=== PATIENT | female | born 1945 | race Caucasian/White ===

== ENCOUNTER 2020-05-02 11:09 | Outpatient (REF) | payer MEDICARE, SELFPAY ==
--- NOTE | ~2020-05-02 | MM_ITS ---
EXAMINATION: MM SCREENING DIGITAL BREAST TOMOSYNTHESIS, BILATERAL CLINICAL INFORMATION: Screening. Asymptomatic. Family history breast cancer in sisters, one diagnosed at age 40. The lifetime risk of breast cancer based on the Tyrer-Cuzick Model is 7%. COMPARISON: Mammography: 04/27/2019, 04/24/2018, 04/20/2017 TECHNIQUE: Digital breast tomosynthesis is performed in both the craniocaudal and mediolateral oblique views along with computer-aided detection (CAD). Synthesized 2D images are generated from the tomosynthesis. FINDINGS: There are scattered areas of fibroglandular density (ACR BI-RADS breast composition Category b). There are no significant masses, abnormal calcifications, or other abnormalities. There is small stable nodule retroareolar right breast. Parenchymal pattern is similar to prior studies. No developing density. No significant changes. MM/MM tomosynthesis screening BI IMPRESSION: No significant changes from prior studies. ASSESSMENT: BI-RADS 2: Benign RECOMMENDATION: Routine annual mammography screening. This patient's information was entered into a reminder system with a target due date for their next mammogram.
== END 2020-05-02 11:10 | disposition home or self-care (01) ==
LOC: HO.MAMMO 11:09
PROVIDERS: PCP Internal Medicine; Visit Provider Obstetrics & Gynecology
DX: Z12.31 Encounter for screening mammogram for malignant neoplasm of breast (principal)
CPT/HCPCS: 77063; 77067

== ENCOUNTER 2020-08-21 06:59 | Outpatient (REF) | payer MEDICARE, SELFPAY ==
[2020-08-21 08:19] LABS: MANUAL DIFF FLAG NO
[2020-08-21 08:29] LABS: Basophils Percent Auto 0.6 % (0-2); Eosinophils Absolute Auto 0.3 X10*3/uL (0.0-0.4); Eosinophils Percent Auto 4.5 % (0-4); Hemoglobin 13.9 g/dl (12.0-16.0); Imm Gran Abs Auto 0.01 X10*3/uL (0.00-0.03); Imm Gran Pct Auto 0.1 % (0.0-0.4); Lymphocytes Percent Auto 42.2 % (20-40); Mean Corpuscular HGB Conc 32.3 g/dl (31.0-35.0); Mean Corpuscular Hemoglobin 29.8 pg (27.0-33.0); Mean Corpuscular Volume 92.3 fL (80-98); Mean Platelet Volume 9.3 fL (9.4-12.3); Monocytes Absolute Auto 0.5 X10*3/uL (0.1-1.2); Monocytes Percent Auto 7.4 % (2-11); Neutrophils Absolute Auto 3.2 X10*3/uL (2.0-8.3); Neutrophils Percent Auto 45.2 % (45-73); Platelet Count 259 X10*3/uL (160-400); Red Blood Count 4.66 X10*6/uL (4.20-5.50); Red Cell Distribution Width 13.4 % (11.0-16.0); White Blood Count 7.2 X10*3/uL (4.8-10.8)
[2020-08-21 08:32] LABS: Glucose Urine UA NEG (NEG); Leukocyte Esterase Urine 1+ (NEG); Nitrite Urine NEG (NEG); Urine Blood NEG (NEG); Urine Ketones NEG (NEG); Urine Protein NEG (NEG-TRACE)
[2020-08-21 08:34] LABS: Appearance Urine CLEAR; Color Urine YELLOW
[2020-08-21 08:54] LABS: Mucus Urine TRACE /LPF; RBC Urine 0 /HPF (0); Renal Epithelial Cells Urine TRACE /LPF; Squamous Epithelial Cell Urine TRACE /LPF
[2020-08-21 08:55] LABS: Alanine Aminotransferase 29 U/L (0-31); Albumin Level 4.4 g/dL (3.5-5.0); Alkaline Phosphatase 83 U/L (39-117); Anion Gap 15 (12-20); Aspartate Amino Transferase 22 U/L (5-31); Bilirubin Total 0.4 mg/dL (0.0-1.0); Blood Urea Nitrogen 14 mg/dL (9-16); Calcium 9.4 mg/dL (8.4-10.2); Carbon Dioxide 25 mmol/L (22-29); Chloride 106 mmol/L (96-108); Cholesterol 200 mg/dL; Estimated Glomerular Filt Rate 59; Glucose Fasting 96 mg/dL (60-99); HDL Cholesterol 91 mg/dL; LDL Cholesterol Calculated 83 mg/dl; Potassium 3.8 mmol/L (3.3-5.1); Sodium 142 mmol/L (135-145); Total Protein 6.8 g/dL (6.5-8.0); Triglycerides 133 mg/dL
== END 2020-08-21 07:00 | disposition home or self-care (01) ==
LOC: HO.LAB 06:59
PROVIDERS: PCP Internal Medicine; Visit Provider Internal Medicine
DX: E78.00 Pure hypercholesterolemia, unspecified (principal); K21.9 Gastro-esophageal reflux disease without esophagitis; I10 Essential (primary) hypertension; K58.9 Irritable bowel syndrome, unspecified
CPT/HCPCS: 36415; 80053; 80061; 81001; 85025

== ENCOUNTER → 2020-08-26 13:17 | Outpatient (BNVA) | payer MEDICARE, SELFPAY | PROVIDERS: Visit Provider Obstetrics & Gynecology ==

== ENCOUNTER 2020-12-04 14:39 | Outpatient (REF) | payer MEDICARE, SELFPAY ==
--- NOTE | ~2020-12-04 | XR_ITS ---
EXAMINATION: XR CERVICAL SPINE CLINICAL INFORMATION: Neck pain. COMPARISON: None TECHNIQUE: AP, lateral, open-mouth, and bilateral oblique views of the cervical spine. FINDINGS: Grade 1 retrolisthesis of C2 on C3. Grade 1 anterolisthesis of C6 on C7. No acute fracture. No loss of vertebral body height. Loss of intervertebral disc height with anterior endplate osteophytes throughout the cervical spine, most prominent at C6-C7. Prominent multilevel bilateral facet arthropathy. Mild multilevel bilateral neural foraminal stenosis. Normal atlantoaxial alignment. Unremarkable prevertebral soft tissues. XR/XR cervical spine min 6V IMPRESSION: Grade 1 retrolisthesis of C2 on C3 and grade 1 anterolisthesis of C6 on C7. Normal atlantoaxial alignment. Multilevel degenerative disc disease and bilateral facet arthropathy with multilevel bilateral neural foraminal stenosis.
== END 2020-12-04 14:40 | disposition home or self-care (01) ==
LOC: HO.XRAY 14:39
PROVIDERS: PCP Internal Medicine; Visit Provider Internal Medicine
DX: M54.2 Cervicalgia (principal)
CPT/HCPCS: 72052

== ENCOUNTER 2020-12-15 07:16 | Outpatient (REF) | payer MEDICARE, SELFPAY ==
--- NOTE | ~2020-12-15 | MR_ITS ---
MR CERVICAL SPINE WITHOUT IV CONTRAST CLINICAL INFORMATION: Neck pain. COMPARISON: Cervical spine radiographs 12/04/2020. TECHNIQUE: MRI of the cervical spine was obtained using routine sequences without contrast. FINDINGS: There is retrosubluxation of C2 on C3 and there is anterior subluxation of C6 on C7. Moderate disc volume loss at C2-C3, C3-C4, C4-C5, and C7-T1. There is no additional bone marrow edema. There are no acute fractures. Craniocervical junction is unremarkable. The cervical arterial flow voids are maintained. There are no significant extraspinal soft tissue findings. No cord signal changes. Partially imaged intracranial compartment is unremarkable. Bilateral cervical ribs at C7. C2-C3: There is retrosubluxation. Disc osteophyte and ligamentum flavum thickening result in moderate central canal stenosis and flattening of the cord. Uncovertebral joint hypertrophy and advanced facet arthropathy result in moderate bilateral foraminal stenosis. C3-C4: Disc osteophyte without central canal stenosis. Advanced uncovertebral joint hypertrophy and hypertrophic facet arthropathy, greater on the left result in moderate left-sided foraminal stenosis. C4-C5: Disc osteophyte mildly narrows the central canal. Advanced uncovertebral joint hypertrophy and hypertrophic facet arthropathy result in mild to moderate bilateral foraminal stenosis. C5-C6: Advanced left-sided uncovertebral joint hypertrophy and hypertrophic facet arthropathy result in mild to moderate left-sided foraminal stenosis. C6-C7: Anterior subluxation. Disc osteophyte mildly narrows the central canal. Advanced facet arthropathy and disc osteophyte results in moderate bilateral foraminal stenosis. C7-T1: Disc osteophyte without central canal stenosis. Uncovertebral joint spurring results in mild bilateral foraminal encroachment. MR/MR cervical spine wo con IMPRESSION: - At C2-C3, retrosubluxation and advanced multifactorial degenerative changes result in moderate central canal stenosis, flattening of the cervical cord, and moderate bilateral foraminal stenosis. - Spondylitic changes result in moderate left C3-C4, mild to moderate bilateral C4-C5, and mild to moderate left C5-C6 foraminal stenosis. - C6-C7, anterior subluxation and advanced facet arthropathy as well as disc osteophyte contribute to moderate bilateral foraminal stenosis. Bilateral cervical ribs at C7. - Bilateral cervical ribs at C7.
== END 2020-12-15 07:17 | disposition home or self-care (01) ==
LOC: HO.MRI 07:16
PROVIDERS: Visit Provider Internal Medicine
DX: M54.2 Cervicalgia (principal); M51.36 Other intervertebral disc degeneration, lumbar region
CPT/HCPCS: 72141

== ENCOUNTER 2021-01-02 07:00 | Outpatient (RCR) | payer MEDICARE, SELFPAY ==
--- NOTE | 2021-01-02 13:44 | MHC.PT.DC ---
[facility] [place] Office [place] Office [place] Office [address] Arin Martin [address] [phone] F: [phone] F: [phone] F: [phone] F: [phone] Physical Therapy Discharge Report Diagnosis: RIGHT NECK SPASM Date of Surgery: Date of Evaluation: 12/17/20 Date of Discharge: 01/02/21 Treatments to Date: 4 Cancellations to Date: 0 No Shows to Date: 0 Discharge Status: Achieved Goals Improved Function Independent with HEP Discharge Summary: Pt's cervical symptoms have resolved. 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 Today , pt demonstrated ability to self correct posture. She has residual tissue tightness, limiting cerv rot to the left- being addressed vis HEP. Pt request D/C today to HEP. She has met STGs and shows improved score on NPDI (today 2/50 and at eval 16/50). Plan discussed with primary PT and pt. Electronically signed by: Sima OsheaNET PROGRAMMER / Jemma Koroma, PT Please sign and return to therapist. Thank you for your referral.
== END 2021-01-02 13:48 | disposition home or self-care (01) ==
LOC: HO.PT 07:00
PROVIDERS: PCP Internal Medicine; Visit Provider Internal Medicine
DX: M62.838 Other muscle spasm (principal)
CPT/HCPCS: 97110; 97140; 97161

== ENCOUNTER 2021-01-23 06:59 | Day surgery (SDC) | payer MEDICARE, SELFPAY ==
[2021-01-16 11:32] VITALS: BMI 22.8
--- NOTE | 2021-01-22 08:56 | P.CONAN_ITS ---
Documented by User: Mariia Osorio NP 01/22/21 08:56 HPI - Anesthesia Eval Consult details Narrative: 75yo F for Upper Endoscopy and Colonoscopy PMFSH Active Problems Active Problems: All Active Problems (Updated 01/16/21 @ 11:28 by Sherrell Montejo, ISACC) Well woman exam (Acute) Past Medical History Medical History Arthritis GERD (gastroesophageal reflux disease) Hyperlipidemia IBS (irritable bowel syndrome) Spinal stenosis Family History Family History Sister Breast CA Surgical History Surgical History Hx of colonoscopy Social History Social History Alcohol intake: current Alcohol intake frequency: 0-2 drinks per day Alcohol type: wine Patient Tobacco Use Status: Never used Tobacco Use of substances other than those prescribed or required for medical reasons: No Are you DNR?: No Advance Directives: No Advance Directives Information Provided: No (mailed info) Advance Directives on File: No Meds Allergies Allergy/AdvReac Type Severity Reaction Status Date / Time No Known Allergies Allergy Verified 01/16/21 11:28 [No Known Allergies*] Home Medications Medication Instructions Recorded Confirmed Last Taken Type dicyclomine 20 mg tablet 20 mg PO BID 08/26/20 01/16/21 Unknown History ezetimibe 10 mg-simvastatin 40 mg 1 tab PO DAILY 08/26/20 01/16/21 Unknown History tablet pantoprazole 40 mg tablet,delayed 40 mg PO DAILY 08/26/20 01/16/21 Unknown History release Calcium + D 01/16/21 01/16/21 Unknown History cyanocobalamin (vitamin B-12) 1,000 mcg PO DAILY 01/16/21 01/16/21 Unknown History 1,000 mcg tablet (Vitamin B-12) Exam Exam Date and Time: January 22, 2021 0856 Height,Weight and Vital Signs: Height 5 ft 3 in Weight 58.513 kg Assessment and Plan Assessment Anesthesia Assessment: Chart Reviewed Documented by User: Lola Hernandez MD 01/23/21 09:26 [facility] Past Medical History Medical History Arthritis GERD (gastroesophageal reflux disease) Hyperlipidemia IBS (irritable bowel syndrome) Spinal stenosis Family History Family History Sister Breast CA Family history of problems with anesthesia: No Surgical History Surgical History Hx of colonoscopy History of Problems with Anesthesia: No Social History Social History Alcohol intake: current Alcohol intake frequency: 0-2 drinks per day Alcohol type: wine Patient Tobacco Use Status: Never used Tobacco Use of substances other than those prescribed or required for medical reasons: No Are you DNR?: No Advance Directives: No Advance Directives Information Provided: No (mailed info) Advance Directives on File: No Meds Allergies Allergy/AdvReac Type Severity Reaction Status Date / Time No Known Allergies Allergy Verified 01/16/21 11:28 [No Known Allergies*] Home Medications Medication Instructions Recorded Confirmed Last Taken Type dicyclomine 20 mg tablet 20 mg PO BID 08/26/20 01/16/21 Unknown History ezetimibe 10 mg-simvastatin 40 mg 1 tab PO DAILY 08/26/20 01/16/21 Unknown History tablet pantoprazole 40 mg tablet,delayed 40 mg PO DAILY 08/26/20 01/16/21 Unknown History release Calcium + D 01/16/21 01/16/21 Unknown History cyanocobalamin (vitamin B-12) 1,000 mcg PO DAILY 01/16/21 01/16/21 Unknown History 1,000 mcg tablet (Vitamin B-12) Exam Height,Weight and Vital Signs: Height 5 ft 3 in Weight 58.513 kg Vital Signs Temp Pulse Resp BP Pulse Ox 01/23/21 08:00 97.2 F 89 16 149/93 H 97 Airway Mallampati Class: II TM Dist: >3cm Neck ROM: Full Loose/Missing/Broken Teeth: No Heart: RRR Lungs: CTAB Assessment and Plan Assessment Anesthesia Assessment: Anesthesia Plan Discussed Final Anesthetic Review Family History of Problems with Anesthesia: No History of Problems with Anesthesia: No NPO: Yes ASA Class: II Final Preanesthetic Review: No Changes in Pt Med Stat, Meds/Allgs Chart Reviewed, Consent Obtained/Reviewed and Anes Risks/Benef Reviewed Patient Risk: Low Procedure Risk: Low Assessment/Block/Sedation in SS: Assess/Block/Sedation-SS Anesthetic Plan Anesthetic Plan: MAC: Disposition: Standard PACU
[2021-01-23 08:00] VITALS: BP 149/93; PULSE 89; RESP 16; TEMP 36.2; O2SAT 97
[2021-01-23] MEDS: Lactated Ringers 1,000 ML 100 ML IVCONT (08:09)
[2021-01-23 10:02] VITALS: BP 100/47; PULSE 76; RESP 14; TEMP 36.3; O2SAT 98
--- NOTE | 2021-01-23 10:03 | P.BOP_ITS ---
Brief Operative Note Date of Service: 01/23/21 Pre-op diagnosis: GERD, Screening Post-op diagnosis: other (Hiatal hernia, Gastric polyps, Colon polyps) Procedure: EGD with bx, Colonoscopy to the cecum with Bx/removal of polyp and snare polypectomy Surgeon: Alan Vega Anesthesia: MAC Was an [employer] used for this Procedure?: No Estimated blood loss (mL): 3.0 Pathology: other (A. Gastric polyps B. Transverse colon polyp C. Polyp at 50cm) Condition: stable Disposition: PACU
[2021-01-23 10:17] VITALS: BP 130/79; PULSE 80; RESP 16; TEMP 36.3; O2SAT 100
--- NOTE | 2021-01-23 13:43 | OP_ITS ---
SURGEON: Alan Vega MD INDICATIONS: The patient presents for evaluation of gastroesophageal reflux and colorectal cancer screening. Full consent has been obtained from her for this, including risks of bleeding and perforation. PREOPERATIVE DIAGNOSIS: POSTOPERATIVE DIAGNOSIS: PROCEDURE PERFORMED: Esophagogastroduodenoscopy with biopsies, and colonoscopy to cecum with biopsy and removal of polyp, and snare polypectomy. ESTIMATED BLOOD LOSS: COMPLICATIONS: ANESTHESIA: Monitored anesthesia care. ASSISTANTS: SPECIMENS: PREOPERATIVE DIAGNOSES: Gastroesophageal reflux, colorectal cancer screening, personal history of tubular adenoma of the colon. POSTOPERATIVE DIAGNOSES: Gastroesophageal reflux, colorectal cancer screening, personal history of tubular adenoma of the colon, small hiatal hernia, gastric polyps, colon polyps, diverticulosis and internal hemorrhoids. DESCRIPTION OF PROCEDURE: The patient was placed in the left lateral decubitus position. The Olympus video gastroscope was passed in the posterior oropharynx and upper esophagus under direct vision. The scope was passed slowly into the distal esophagus. The gastroesophageal junction appeared normal at 35 cm. There was no sign of any esophagitis nor Johnson's esophagus. The scope entered into the stomach. There was a small hiatal hernia. The scope was advanced to pylorus and duodenum was cannulated to the descending portion. The duodenum including the bulb appeared normal without mass or ulceration. The scope was withdrawn back into the stomach. The gastric antrum and body appeared normal with good peristalsis. The scope was retroflexed visualizing the proximal stomach carefully, which appeared normal, without any sign of mass or ulceration, other than multiple hyperplastic appearing gastric polyps. Several of these were biopsied. The scope was withdrawn back into the esophagus. The esophageal mucosa appeared normal. The scope was withdrawn from the patient. She was turned around for the colonoscopy. The digital rectal exam revealed no abnormalities. The Olympus video pediatric colonoscope was entered into the rectum and advanced easily to the cecum. Once in the cecum, I did identify normal-appearing cecal pouch with appendiceal orifice and a normal-appearing ileocecal valve. The entire cecum and ileocecal valve appeared normal. There was transillumination of light deep in the right lower quadrant. The scope was slowly withdrawn assessing all mucosal surfaces carefully. Preparation was excellent. In the transverse colon, was a flat approximately 3 or 4 mm polyp, which was biopsied and completely removed with cold biopsy forceps. At 50 cm, was an approximately 10 mm polyp, which was snared and recovered by suction. The polypectomy site appeared clean, without any sign of residual polyp nor bleeding. I did not visualize any other polyps, colitis, nor angiodysplasia. There was a mild amount of sigmoid diverticulosis. In the rectum, scope was retroflexed visualizing internal hemorrhoids, but no other pathology. The rectal mucosa appeared normal. The scope was straightened out and withdrawn from the patient. She tolerated both procedures well and was returned to recovery area in stable condition. IMPRESSION: 1. Colon polyps. 2. Gastric polyps. 3. Small hiatal hernia. 4. Diverticulosis. 5. Internal hemorrhoids. PLAN: The results of the pathology will be checked. Given her age and these findings, I do not think she will need any further screening colonoscopies. She was advised to continue pantoprazole either daily or just as needed for reflux symptoms. She will otherwise see me on a p.r.n. basis. She was advised not to use any aspirin and NSAIDs for 1 week. MD PANFILO Malloy/NICOLE / [phone]
== END 2021-01-23 10:50 | disposition home or self-care (01) ==
PROVIDERS: PCP Internal Medicine; Visit Provider Internal Medicine
PROC: (CPT 45385; principal; 2021-01-23 08:20)
DX: Z12.11 Encounter for screening for malignant neoplasm of colon (principal); Z86.010 Personal history of colon polyps; D12.3 Benign neoplasm of transverse colon; D12.5 Benign neoplasm of sigmoid colon; K57.30 Diverticulosis of large intestine without perforation or abscess without bleeding; K64.8 Other hemorrhoids; K58.1 Irritable bowel syndrome with constipation; K21.9 Gastro-esophageal reflux disease without esophagitis; K31.7 Polyp of stomach and duodenum; K44.9 Diaphragmatic hernia without obstruction or gangrene; Z79.899 Other long term (current) drug therapy
CPT/HCPCS: 45385; 45380; 43239; 88305; 88342

== ENCOUNTER 2021-03-25 08:59 | Emergency (ER) | payer MEDICARE, SELFPAY ==
--- NOTE | ~2021-03-25 | XR_ITS ---
EXAMINATION: XR SHOULDER, RIGHT CLINICAL INFORMATION: Right shoulder pain status post fall. COMPARISON: None TECHNIQUE: AP external rotation, Grashey, scapular Y, and axillary views of the right shoulder. FINDINGS: Mild to moderate right acromioclavicular degenerative joint changes are seen. The right glenohumeral joint is intact. There is no acute fracture or dislocation. The soft tissues are unremarkable. XR/XR shoulder RT min 2V IMPRESSION: Mild to moderate right acromioclavicular degenerative joint changes. No acute fracture.
[2021-03-25 10:19] VITALS: BP 157/86; PULSE 88; RESP 16; TEMP 36.9; O2SAT 97; BMI 21.7
--- NOTE | 2021-03-25 11:36 | ED_ITS ---
HPI - Extremity Problem General Chief complaint: Extremity Injury, Upper Stated complaint: fall on face/ shoulder pain Time Seen by Provider: 03/25/21 11:36 History of Present Illness HPI Narrative: Patient complains of right shoulder pain when she tripped and fell playing with her grandson and hit the shoulder against the deck, no other injury no head injury no neck injury no headache no neck pain no numbness weakness or tingling no fainting, this happened yesterday and she feels oth erwise normal in fine except for some pain in her right shoulder Related Data Home Medications Medication Instructions Recorded Confirmed dicyclomine 20 mg tablet 20 mg PO BID 08/26/20 01/16/21 ezetimibe 10 mg-simvastatin 40 mg 1 tab PO DAILY 08/26/20 01/16/21 tablet pantoprazole 40 mg tablet,delayed 40 mg PO DAILY 08/26/20 01/16/21 release Calcium + D 01/16/21 01/16/21 cyanocobalamin (vitamin B-12) 1,000 mcg PO DAILY 01/16/21 01/16/21 1,000 mcg tablet (Vitamin B-12) Allergies Allergy/AdvReac Type Severity Reaction Status Date / Time No Known Allergies Allergy Verified 01/16/21 11:28 [No Known Allergies*] Review of Systems Review of Systems: Positive for right shoulder pain negative for headache loss of consciousness no nausea no vision changes no dizziness no confusion not dazed no chest pain no shortness of breath no fainting no feeling faint no numbness weakness or tingling Yes all other systems are reviewed and are negative PMFSH Past Medical History Source: nursing notes reviewed Medical History Arthritis GERD (gastroesophageal reflux disease) Hyperlipidemia IBS (irritable bowel syndrome) Spinal stenosis Surgical History Hx of colonoscopy Family History Family History Sister Breast CA Social History Social History Alcohol intake: current Alcohol intake frequency: 0-2 drinks per day Alcohol type: wine Patient Tobacco Use Status: Never used Tobacco Advance Directives: Yes Advance Directives Information Provided: No Advance Directives on File: No Physical Exam Vital Signs: Vital Signs: Last Vital Signs Temp 98.5 F 03/25/21 10:19 Pulse 88 03/25/21 10:19 Resp 16 03/25/21 10:19 BP 157/86 H 03/25/21 10:19 Pulse Ox 97 03/25/21 10:19 BMI result Body Mass Index 21.7 General appearance no distress Head is normocephalic atraumatic There is no tenderness or deformity to the scalp there is no raccoon eyes there is no hemotympanum there is no Rey sign Facial bones are nontender pupils equal round reactive to light extraocular motions are intact there is no deformity or swelling of the face no lacerations Neck is supple nontender Chest clear no chest wall tenderness Extremities the right shoulder has a full range of motion with very mild discomfort there is some mild tenderness to the shoulder, neurovascular intact distal, skin is intact Other extremities normal Course Course Course Narrative: Right shoulder x-ray showed some arthritis but no bony injury and patient had a good range of motion with mild discomfort She is advised to follow with orthopedist if discomfort continues She had no evidence of any other injury she is not on Coumadin she had no head injury no neck injury no headache no nausea no dizziness Discharge Plan Discharge Clinical Impression: Muscle strain of right shoulder Patient Disposition: Home, Self-Care Additional Instructions: Follow with orthopedist Her x-ray was normal except for some arthritis Activity as tolerated Return any concerns Prescriptions: No Action cyanocobalamin (vitamin B-12) [Vitamin B-12] 1,000 mcg Tablet 1,000 mcg PO DAILY RF: 0 Calcium + D RF: 0 dicyclomine 20 mg tablet 20 mg PO BID RF: 0 ezetimibe-simvastatin 10-40 mg tablet 1 tab PO DAILY RF: 0 pantoprazole 40 mg tablet,delayed release (DR/EC) 40 mg PO DAILY RF: 0 Referrals: Federico Tliley MD [Physician] - 10 days (Right shoulder sprain) Interventions: ED Discharge Assessment Last Done: 03/25/21 11:49 Discharge Date/Time: 03/25/21 11:49
== END 2021-03-25 11:49 | disposition home or self-care (01) ==
PROVIDERS: Emergency Provider Emergency Medicine; PCP Internal Medicine
DX: S46.911A Strain of unspecified muscle, fascia and tendon at shoulder and upper arm level, right arm, initial encounter (principal); W01.198A Fall on same level from slipping, tripping and stumbling with subsequent striking against other object, initial encounter; M19.011 Primary osteoarthritis, right shoulder; Y93.02 Activity, running; Y92.017 Garden or yard in single-family (private) house as the place of occurrence of the external cause; Y99.9 Unspecified external cause status
CPT/HCPCS: 73030; 99283

== ENCOUNTER 2021-05-18 07:16 | Outpatient (REF) | payer MEDICARE, SELFPAY ==
--- NOTE | ~2021-05-18 | MM_ITS ---
EXAMINATION: MM SCREENING DIGITAL BREAST TOMOSYNTHESIS, BILATERAL CLINICAL INFORMATION: Screening. Asymptomatic. The lifetime risk of breast cancer based on the Tyrer-Cuzick Model is 7%. COMPARISON: Mammography: 05/02/2020, 04/27/2019, 04/24/2018, 04/20/2017, 04/20/2015 TECHNIQUE: Digital breast tomosynthesis is performed in both the craniocaudal and mediolateral oblique views along with computer-aided detection (CAD). Synthesized 2D images are generated from the tomosynthesis. FINDINGS: There are scattered areas of fibroglandular density (ACR BI-RADS breast composition Category b). There are no significant masses, abnormal calcifications, or other abnormalities. There are scattered bilateral stable minor asymmetries. No developing density. No interval architectural abnormality. The axilla and skin contours are unremarkable. MM/MM tomosynthesis screening BI IMPRESSION: No mammographic evidence of malignancy. ASSESSMENT: BI-RADS 2: Benign RECOMMENDATION: Routine annual mammography screening. This patient's information was entered into a reminder system with a target due date for their next mammogram.
== END 2021-05-18 07:17 | disposition home or self-care (01) ==
LOC: HO.MAMMO 07:16
PROVIDERS: PCP Internal Medicine; Visit Provider Internal Medicine
DX: Z12.31 Encounter for screening mammogram for malignant neoplasm of breast (principal)
CPT/HCPCS: 77063; 77067

== ENCOUNTER 2021-06-12 06:57 | Outpatient (REF) | payer MEDICARE, SELFPAY ==
[2021-06-12 07:11] LABS: MANUAL DIFF FLAG NO
[2021-06-12 07:37] LABS: Basophils Absolute Auto 0.1 X10*3/uL (0.0-0.2); Basophils Percent Auto 0.7 % (0-2); Eosinophils Absolute Auto 0.4 X10*3/uL (0.0-0.4); Eosinophils Percent Auto 5.3 % (0-4); Hemoglobin 14.1 g/dl (12.0-16.0); Imm Gran Abs Auto 0.02 X10*3/uL (0.00-0.03); Imm Gran Pct Auto 0.3 % (0.0-0.4); Lymphocytes Absolute Auto 2.9 X10*3/uL (1.2-4.9); Lymphocytes Percent Auto 41.9 % (20-40); Mean Corpuscular Hemoglobin 30.2 pg (27.0-33.0); Mean Corpuscular Volume 94.2 fL (80.0-98.0); Mean Platelet Volume 9.3 fL (9.4-12.3); Monocytes Absolute Auto 0.4 X10*3/uL (0.1-1.2); Monocytes Percent Auto 6.3 % (2-11); Neutrophils Absolute Auto 3.2 x10*3/uL (2.0-8.3); Neutrophils Percent Auto 45.5 % (45-73); Platelet Count 256 X10*3/uL (160-400); Red Blood Count 4.67 X10*6/uL (4.20-5.50); Red Cell Distribution Width 13.6 % (11.0-16.0)
[2021-06-12 07:53] LABS: Alanine Aminotransferase 22 U/L (0-31); Albumin Level 4.4 g/dL (3.5-5.0); Alkaline Phosphatase 82 U/L (39-117); Anion Gap 14 (12-20); Aspartate Amino Transferase 21 U/L (5-31); Bilirubin Total 0.5 mg/dL (0.0-1.0); Blood Urea Nitrogen 16 mg/dL (9-16); Carbon Dioxide 27 mmol/L (22-29); Chloride 105 mmol/L (96-108); Cholesterol 209 mg/dL; Estimated Glomerular Filt Rate 56; Glucose Fasting 98 mg/dL (60-99); HDL Cholesterol 90 mg/dL; LDL Cholesterol Calculated 97 mg/dl; Potassium 4.4 mmol/L (3.3-5.1); Sodium 142 mmol/L (135-145); Total Protein 6.9 g/dL (6.5-8.0); Triglycerides 110 mg/dL
== END 2021-06-12 06:58 | disposition home or self-care (01) ==
LOC: HO.LAB 06:57
PROVIDERS: PCP Internal Medicine; Visit Provider Internal Medicine
DX: E78.00 Pure hypercholesterolemia, unspecified (principal); K58.9 Irritable bowel syndrome, unspecified; Z86.010 Personal history of colon polyps
CPT/HCPCS: 36415; 80053; 80061; 85025

== ENCOUNTER → 2021-08-27 08:14 | Outpatient (BNVA) | payer MEDICARE, SELFPAY | PROVIDERS: PCP Internal Medicine; Visit Provider Obstetrics & Gynecology | DX: Z13.89 Encounter for screening for other disorder (principal) ==

== ENCOUNTER 2021-09-24 07:04 | Outpatient (REF) | payer MEDICARE, SELFPAY ==
[2021-09-24 09:53] LABS: Anion Gap 15 (12-20); Blood Urea Nitrogen 17 mg/dL (9-16); Calcium 9.3 mg/dL (8.4-10.2); Carbon Dioxide 25 mmol/L (22-29); Chloride 104 mmol/L (96-108); Estimated Glomerular Filt Rate > 60; Glucose Random 90 mg/dL (60-115); Potassium 4.5 mmol/L (3.3-5.1); Sodium 139 mmol/L (135-145)
== END 2021-09-24 07:05 | disposition home or self-care (01) ==
LOC: HO.LAB 07:04
PROVIDERS: PCP Internal Medicine; Visit Provider Internal Medicine
DX: K21.9 Gastro-esophageal reflux disease without esophagitis (principal); N18.9 Chronic kidney disease, unspecified
CPT/HCPCS: 36415; 80048

== ENCOUNTER 2021-11-19 07:59 | Outpatient (REF) | payer MEDICARE, SELFPAY ==
--- NOTE | ~2021-11-19 | MM_ITS ---
EXAMINATION: BONE DENSITOMETRY CLINICAL INDICATION: Asymptomatic menopausal state. COMPARISON: Previous BD dated 11/15/2019 and baseline BD dated 02/25/2011. TECHNIQUE: Using a One Season DXA System (software version: 13.1) manufactured by [employer], dual-energy x-ray absorptiometry was performed of the lumbar spine and left hip. The images are of good technical quality. Summary results are attached. FINDINGS: AP SPINE L1-L4: Current: BMD 1.191 g/cm2, Z-score 2.2, T-score 0.1, normal, 4.0% decrease from previous, 5.6% decrease from baseline (<5% change is not significant). Prior: BMD 1.240 g/cm2. Baseline: BMD 1.261 g/cm2. LEFT FEMUR, NECK: Current: BMD 0.836 g/cm2, Z-score 0.7, T-score -1.5, osteopenia. Prior: BMD 0.845 g/cm2. Baseline: BMD 0.941 g/cm2. LEFT FEMUR, TOTAL: Current: BMD 0.903 g/cm2, Z-score 1.2, T-score -0.8, normal, 0.1% decrease from previous, 11.0% decrease from baseline (<5% change is not significant). Prior: BMD 0.904 g/cm2. Baseline: BMD 1.015 g/cm2. IDENTIFIED RISK FACTORS: Early menopause, secondary osteoporosis, height loss. HISTORY OF FRACTURE: None listed. MEDICATIONS: Calcium supplements or multivitamin, vitamin D. MM/XR DEXA axial skeleton IMPRESSION: 1. DIAGNOSIS: Osteopenia based on the lowest T-score value of -1.5 in the femoral neck applying World Health Organization criteria. 2. 10-YEAR FRACTURE RISK PREDICTION, FRAX: Major osteoporotic fracture (clinical spine, forearm, hip or shoulder) 10.8%. Hip fracture 2.3%. 3. Treatment Recommendations: NOF guidelines recommend consideration for treatment in postmenopausal women and men age 50 and older presenting with the following: -A hip or vertebral (clinical or morphometric) fracture. -T-score less than or equal to -2.5 at the femoral neck or spine after appropriate evaluation to exclude secondary causes. -Low bone mass at the hip or spine and a 10-year fracture probability by FRAX of greater than or equal to 3% for hip fracture or greater than or equal to 20% for major osteoporotic fracture based on the [place] adapted WHO algorithm. 4. Other Recommendations: All treatment decisions require clinical judgment and consideration of individual patient factors, including patient preferences, comorbidities, previous drug use, risk factors not captured in the FRAX model (e.g. frailty, falls, vitamin D deficiency, increased bone turnover, interval significant decline in bone density) and possible under or overestimation of fracture risk by FRAX. Additional medical evaluation for secondary cause of low bone mineral density may be appropriate. FUTURE SCAN RECOMMENDATION: People with diagnosed cases of osteoporosis or at high risk for fracture should have regular bone mineral density tests. For patients eligible for Medicare, routine testing is allowed once every 2 years. The testing frequency can be increased to one year for patients who have rapidly progressing disease, those who are receiving or discontinuing medical therapy to restore bone mass, or have additional risk factors.
== END 2021-11-19 08:00 | disposition home or self-care (01) ==
LOC: HO.MAMMO 07:59
PROVIDERS: PCP Internal Medicine; Visit Provider Internal Medicine
DX: Z13.820 Encounter for screening for osteoporosis (principal); Z78.0 Asymptomatic menopausal state
CPT/HCPCS: 77080

== ENCOUNTER → 2021-12-01 15:13 | Outpatient (BNVA) | payer MEDICARE, SELFPAY | PROVIDERS: PCP Internal Medicine; Visit Provider Obstetrics & Gynecology | DX: M85.80 Other specified disorders of bone density and structure, unspecified site (principal) | CPT/HCPCS: Q3014 ==

== ENCOUNTER 2022-05-24 07:35 | Outpatient (REF) | payer MEDICARE, SELFPAY ==
--- NOTE | ~2022-05-24 | MM_ITS ---
EXAMINATION: MM SCREENING DIGITAL BREAST TOMOSYNTHESIS, BILATERAL CLINICAL INFORMATION: Screening. Asymptomatic. The lifetime risk of breast cancer based on the Tyrer-Cuzick Model is 7%. COMPARISON: Mammography: 05/18/2021, 05/02/2020, 04/27/2019 TECHNIQUE: Digital breast tomosynthesis is performed in both the craniocaudal and mediolateral oblique views along with computer-aided detection (CAD). Synthesized 2D images are generated from the tomosynthesis. FINDINGS: There are scattered areas of fibroglandular density (ACR BI-RADS breast composition Category b). There are no significant masses, abnormal calcifications, or other abnormalities. No architectural abnormality or developing density or significant change from prior studies. Small circumscribed nodule anterior right breast stable. Small low right axillary tail node again seen. The axilla are unremarkable. Skin contours are smooth. MM/MM tomosynthesis screening BI IMPRESSION: No mammographic evidence of malignancy. ASSESSMENT: BI-RADS 2: Benign RECOMMENDATION: Routine annual mammography screening. This patient's information was entered into a reminder system with a target due date for their next mammogram.
== END 2022-05-24 07:36 | disposition home or self-care (01) ==
LOC: HO.MAMMO 07:35
PROVIDERS: PCP Internal Medicine; Visit Provider Obstetrics & Gynecology
DX: Z12.31 Encounter for screening mammogram for malignant neoplasm of breast (principal)
CPT/HCPCS: 77063; 77067

== ENCOUNTER 2022-06-07 06:53 | Outpatient (REF) | payer MEDICARE, SELFPAY ==
[2022-06-07 07:02] LABS: MANUAL DIFF FLAG NO
[2022-06-07 07:25] LABS: Basophils Absolute Auto 0.1 X10*3/uL (0.0-0.2); Basophils Percent Auto 0.9 % (0-2); Eosinophils Absolute Auto 0.4 X10*3/uL (0.0-0.4); Hematocrit 45.9 % (37.0-47.0); Hemoglobin 14.9 g/dl (12.0-16.0); Imm Gran Abs Auto 0.01 X10*3/uL (0.00-0.03); Imm Gran Pct Auto 0.1 % (0.0-0.4); Lymphocytes Absolute Auto 3.2 X10*3/uL (1.2-4.9); Lymphocytes Percent Auto 40.8 % (20-40); Mean Corpuscular HGB Conc 32.5 g/dl (31.0-35.0); Mean Corpuscular Hemoglobin 29.7 pg (27.0-33.0); Mean Corpuscular Volume 91.4 fL (80.0-98.0); Monocytes Absolute Auto 0.5 X10*3/uL (0.1-1.2); Monocytes Percent Auto 6.7 % (2-11); Neutrophils Absolute Auto 3.6 x10*3/uL (2.0-8.3); Neutrophils Percent Auto 46.5 % (45-73); Platelet Count 268 X10*3/uL (160-400); Red Blood Count 5.02 X10*6/uL (4.20-5.50); Red Cell Distribution Width 13.6 % (11.0-16.0); White Blood Count 7.7 X10*3/uL (4.8-10.8)
[2022-06-07 08:07] LABS: Alanine Aminotransferase 21 U/L (0-31); Albumin Level 4.4 g/dL (3.5-5.0); Alkaline Phosphatase 78 U/L (39-117); Anion Gap 13 (12-20); Aspartate Amino Transferase 20 U/L (5-31); Bilirubin Total 0.6 mg/dL (0.0-1.0); Blood Urea Nitrogen 18 mg/dL (9-16); Calcium 9.3 mg/dL (8.4-10.2); Carbon Dioxide 28 mmol/L (22-29); Chloride 107 mmol/L (96-108); Cholesterol 215 mg/dL; Estimated Glomerular Filt Rate 53; Glucose Fasting 98 mg/dL (60-99); HDL Cholesterol 82 mg/dL; LDL Cholesterol Calculated 107 mg/dl; Potassium 5.1 mmol/L (3.3-5.1); Sodium 143 mmol/L (135-145); Total Protein 6.6 g/dL (6.5-8.0); Triglycerides 134 mg/dL
[2022-06-07 08:26] LABS: Vitamin D 25-OH Total 43.9 ng/mL (>30)
== END 2022-06-07 06:54 | disposition home or self-care (01) ==
LOC: HO.LAB 06:53
PROVIDERS: PCP Internal Medicine; Visit Provider Internal Medicine
DX: Z00.00 Encounter for general adult medical examination without abnormal findings (principal)
CPT/HCPCS: 36415; 80053; 80061; 82306; 85025

== ENCOUNTER → 2022-08-31 08:11 | Outpatient (BNVA) | payer MEDICARE, SELFPAY | PROVIDERS: PCP Internal Medicine; Visit Provider Obstetrics & Gynecology ==

== ENCOUNTER 2022-12-09 06:47 | Outpatient (REF) | payer MEDICARE, SELFPAY ==
[2022-12-09 07:14] LABS: Anion Gap 12 (12-20); Blood Urea Nitrogen 16 mg/dL (9-16); Calcium 9.7 mg/dL (8.4-10.2); Carbon Dioxide 27 mmol/L (22-29); Chloride 108 mmol/L (96-108); Estimated Glomerular Filt Rate 57; Glucose Random 101 mg/dL (60-115); Potassium 4.8 mmol/L (3.3-5.1); Sodium 142 mmol/L (135-145)
[2022-12-09 10:42] LABS: Appearance Urine Clear; Color Urine Yellow; Glucose Urine UA Negative (Negative); Leukocyte Esterase Urine Small (1+) (Negative); Nitrite Urine Negative (Negative); PH 5.5 (5.0-9.0); UMIC TRIGGER UA YES; Urine Blood Negative (Negative); Urine Ketones Negative (Negative); Urine Protein Negative (Neg-Trace)
[2022-12-09 10:47] LABS: Bacteria Urine None Seen (None Seen); Hyaline Casts Urine 0-2 /LPF (0-2); RBC Urine 0-2 /HPF (0-2); Squamous Epithelial Cell Urine 0-2 /HPF (0-2)
== END 2022-12-09 06:48 | disposition home or self-care (01) ==
LOC: HO.LAB 06:47
PROVIDERS: PCP Internal Medicine; Visit Provider Internal Medicine
DX: K21.9 Gastro-esophageal reflux disease without esophagitis (principal); K58.9 Irritable bowel syndrome, unspecified; N18.9 Chronic kidney disease, unspecified; K57.90 Diverticulosis of intestine, part unspecified, without perforation or abscess without bleeding
CPT/HCPCS: 36415; 80048; 81001

== ENCOUNTER 2023-03-10 06:51 | Outpatient (REF) | payer MEDICARE, SELFPAY ==
[2023-03-10 07:03] LABS: MANUAL DIFF FLAG NO
[2023-03-10 07:53] LABS: Basophils Absolute Auto 0.1 X10*3/uL (0.0-0.2); Basophils Percent Auto 0.8 % (0-2); Eosinophils Absolute Auto 0.3 X10*3/uL (0.0-0.4); Eosinophils Percent Auto 3.9 % (0-4); Hematocrit 44.4 % (37.0-47.0); Imm Gran Abs Auto 0.02 X10*3/uL (0.00-0.03); Imm Gran Pct Auto 0.3 % (0.0-0.4); Lymphocytes Absolute Auto 2.8 X10*3/uL (1.2-4.9); Lymphocytes Percent Auto 41.6 % (20-40); Mean Corpuscular HGB Conc 33.8 g/dl (31.0-35.0); Mean Corpuscular Hemoglobin 30.3 pg (27.0-33.0); Mean Corpuscular Volume 89.7 fL (80.0-98.0); Mean Platelet Volume 9.3 fL (9.4-12.3); Monocytes Absolute Auto 0.5 X10*3/uL (0.1-1.2); Monocytes Percent Auto 6.8 % (2-11); Neutrophils Absolute Auto 3.1 x10*3/uL (2.0-8.3); Neutrophils Percent Auto 46.6 % (45-73); Platelet Count 271 X10*3/uL (160-400); Red Blood Count 4.95 X10*6/uL (4.20-5.50); Red Cell Distribution Width 13.5 % (11.0-16.0); White Blood Count 6.6 X10*3/uL (4.8-10.8)
[2023-03-10 08:17] LABS: Anion Gap 13 (12-20); Blood Urea Nitrogen 15 mg/dL (9-16); Calcium 9.8 mg/dL (8.4-10.2); Carbon Dioxide 28 mmol/L (22-29); Chloride 104 mmol/L (96-108); Estimated Glomerular Filt Rate 58; Glucose Random 95 mg/dL (60-115); Potassium 3.6 mmol/L (3.3-5.1); Sodium 141 mmol/L (135-145)
== END 2023-03-10 06:52 | disposition home or self-care (01) ==
LOC: HO.LAB 06:51
PROVIDERS: PCP Internal Medicine; Visit Provider Internal Medicine
DX: K21.9 Gastro-esophageal reflux disease without esophagitis (principal); N18.9 Chronic kidney disease, unspecified; K57.90 Diverticulosis of intestine, part unspecified, without perforation or abscess without bleeding
CPT/HCPCS: 36415; 80048; 85025

== ENCOUNTER 2023-05-31 07:16 | Outpatient (REF) | payer MEDICARE, SELFPAY | END 2023-05-31 07:17 | disposition home or self-care (01) | LOC: HO.MAMMO 07:16 | PROVIDERS: PCP Internal Medicine; Visit Provider Internal Medicine | DX: Z12.31 Encounter for screening mammogram for malignant neoplasm of breast (principal) | CPT/HCPCS: 77063; 77067 ==

== ENCOUNTER → 2023-05-31 07:30 | Outpatient (BNV) | payer MEDICARE, SELFPAY | PROVIDERS: PCP Internal Medicine; Visit Provider Radiology Diagnostic Radiology | DX: Z12.31 Encounter for screening mammogram for malignant neoplasm of breast (principal) | CPT/HCPCS: 77063; 77067 ==

== ENCOUNTER 2023-08-18 06:24 | Outpatient (REF) | payer MEDICARE, SELFPAY ==
[2023-08-18 06:36] LABS: MANUAL DIFF FLAG NO
[2023-08-18 07:02] LABS: Basophils Absolute Auto 0.1 X10*3/uL (0.0-0.2); Eosinophils Absolute Auto 0.3 X10*3/uL (0.0-0.4); Eosinophils Percent Auto 4.6 % (0-4); Hematocrit 42.2 % (37.0-47.0); Hemoglobin 14.3 g/dl (12.0-16.0); Imm Gran Abs Auto 0.02 X10*3/uL (0.00-0.03); Imm Gran Pct Auto 0.3 % (0.0-0.4); Lymphocytes Absolute Auto 2.8 X10*3/uL (1.2-4.9); Lymphocytes Percent Auto 40.5 % (20-40); Mean Corpuscular HGB Conc 33.9 g/dl (31.0-35.0); Mean Corpuscular Hemoglobin 30.8 pg (27.0-33.0); Mean Corpuscular Volume 90.9 fL (80.0-98.0); Monocytes Absolute Auto 0.5 X10*3/uL (0.1-1.2); Monocytes Percent Auto 6.6 % (2-11); Neutrophils Absolute Auto 3.2 x10*3/uL (2.0-8.3); Platelet Count 241 X10*3/uL (160-400); Red Blood Count 4.64 X10*6/uL (4.20-5.50); Red Cell Distribution Width 13.5 % (11.0-16.0); White Blood Count 6.8 X10*3/uL (4.8-10.8)
[2023-08-18 07:22] LABS: Alanine Aminotransferase 16 U/L (0-31); Albumin Level 4.4 g/dL (3.5-5.0); Alkaline Phosphatase 64 U/L (39-117); Anion Gap 14 (12-20); Aspartate Amino Transferase 19 U/L (5-31); Bilirubin Total 0.5 mg/dL (0.0-1.0); Blood Urea Nitrogen 16 mg/dL (9-16); Calcium 9.7 mg/dL (8.4-10.2); Carbon Dioxide 27 mmol/L (22-29); Chloride 106 mmol/L (96-108); Cholesterol 195 mg/dL (<200); Estimated Glomerular Filt Rate 60; Glucose Fasting 91 mg/dL (60-99); HDL Cholesterol 89 mg/dL (>40); LDL Cholesterol Calculated 89 mg/dL (<100); Sodium 143 mmol/L (135-145); Total Protein 6.9 g/dL (6.5-8.0); Triglycerides 87 mg/dL (<150)
== END 2023-08-18 06:25 | disposition home or self-care (01) ==
LOC: HO.LAB 06:24
PROVIDERS: PCP Internal Medicine; Visit Provider Internal Medicine
DX: E78.00 Pure hypercholesterolemia, unspecified (principal); K21.9 Gastro-esophageal reflux disease without esophagitis; Z86.010 Personal history of colon polyps
CPT/HCPCS: 36415; 80053; 80061; 85025

== ENCOUNTER 2023-10-20 08:08 | Outpatient (AMB) | payer MEDICARE, SELFPAY ==
--- NOTE | 2023-10-20 08:21 | MHC.OFFVIS ---
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 No complaints. Last Pap/HPV was many years ago no history of abnormal Pap smear Last Mammogram was BI-RADS 1 in 05/21 Last Colonoscopy was in 01/15 Last DEXA scan was in 11/16 was in the low risk category PFSH Medical History Arthritis Spinal stenosis IBS (irritable bowel syndrome) Hyperlipidemia GERD (gastroesophageal reflux disease) Surgical History Hx of colonoscopy Family History Sister Breast CA Social History Housing: House Alcohol intake: current Alcohol intake frequency: 0-2 drinks per day Alcohol type: wine Patient Tobacco Use Status: Never used Tobacco Current occupational status: retired Sexual orientation: Straight/Heterosexual Gender identity: Female Female Reproductive History Menstrual Age of Menarche: 11 Menopause type: natural Total pregnancies: 3 Full term: 2 Number of Living Children: 2 Date of last pap smear: 02/11/11 Date of Mammogram: 05/31/23 Review of Systems Const All systems reviewed & are unremarkable except as noted in HPI and below Card Reports as per HPI Resp Reports as per HPI GI Reports as per HPI and Reports no additional complaints Reports as per HPI Physical Exam Vital Signs: Last Vital Signs BP 130/60 10/20/23 08:41 BMI result Body Mass Index 20.9 Const General: cooperative, healthy appearing and comfortable Chest Chest palpation & inspection: normal inspection of the chest and normal palpation of entire chest wall Breast/axilla inspection: normal inspection of the breasts and normal inspection of the axillae Breast/axilla palpation: normal palpation of the breasts, normal palpation of the axillae and no axillary lymphadenopathy Resp Effort & Inspection: normal respiratory effort Auscultation: clear to auscultation bilaterally Percussion: percussion normal Cardio Palpation: normal PMI Rate: regular rate Rhythm: regular rhythm Heart sounds: no murmurs and no rubs Peripheral pulses: Peripheral pulses 2+ throughout GI Inspection: Yes normal to inspection Palpation (GI): Soft to palpation, nontender, no guarding, not rigid and No hepatosplenomegaly present Percussion: Yes normal to percussion Auscultation: normal bowel sounds Rectal Exam - Female: deferred General: Yes bladder normal to palpation External Female Exam: No lesion Speculum Exam - Vagina: normal appearance of the vagina, normal palpation, normal vaginal discharge and not erythematous Speculum Exam - Cervix: normal appearance of the cervix and normal palpation Bimanual exam- vagina & uterus: normal bimanual exam, normal palpation, uterine size normal, bladder normal to palpation, consistency normal and normal palpation Bimanual Exam- Adnexa, other: normal adnexae, no masses and no tenderness Assessment & Plan Assessment & Plan (1) Well woman exam: Code(s): Z01.419 - Encounter for gynecological examination (general) (routine) without abnormal findings Category: Medical Plan: Co testing not indicated since the patient 's age is above 65 with no history of abnormal Pap smears last 25 years. Counseled the patient about the recommended dietary allowance of 1200 mg of Calcium & 800 IU of vitamin D. Instructions given the patient to schedule next screen Mammogram in 06/19. Will order DEXA scan . The patient was instructed to perform monthly self-breast exams and to schedule a 2 week DEXA scan follow-up appointment and an annual exam in a year; All questions answered and the patient verbalized understanding. Orders: Orders XR DEXA axial skeleton Today Z78.0 - Asymptomatic menopausal state Coding Level of Care Code Est Pt Prev Care >65y(26174) Diagnoses Well woman exam Z01.419
[2023-10-20 08:41] VITALS: BP 130/60; BMI 20.9
== END 2023-10-20 09:33 | disposition home or self-care (01) ==
PROVIDERS: PCP Internal Medicine; Visit Provider Obstetrics & Gynecology
DX: Z01.419 Encounter for gynecological examination (general) (routine) without abnormal findings (principal)
CPT/HCPCS: 99397

== ENCOUNTER → 2023-10-20 08:08 | Outpatient (BNVA) | payer MEDICARE, SELFPAY | PROVIDERS: PCP Internal Medicine; Visit Provider Obstetrics & Gynecology ==

== ENCOUNTER 2023-11-23 09:55 | Outpatient (REF) | payer MEDICARE, SELFPAY ==
--- NOTE | ~2023-11-23 | MM_ITS ---
EXAMINATION: BONE DENSITOMETRY CLINICAL INDICATION: Menopause. COMPARISON: Previous BD dated 11/19/2021 and baseline BD dated 02/25/2011. TECHNIQUE: Using a [employer] DXA System (software version: 13.1) manufactured by [employer], dual-energy x-ray absorptiometry was performed of the lumbar spine and left hip. The images are of good technical quality. Summary results are attached. FINDINGS: LEFT FEMUR, NECK: Current: BMD 0.836 g/cm2, Z-score 0.9, T-score -1.5, osteopenia. Prior: BMD 0.836 g/cm2. Baseline: BMD 0.941 g/cm2. LEFT FEMUR, TOTAL: Current: BMD 0.856 g/cm2, Z-score 1.0, T-score -1.2, osteopenia, 5.2% decrease from previous, 15.7% decrease from baseline (<5% change is not significant). Prior: BMD 0.903 g/cm2. Baseline: BMD 1.015 g/cm2. AP SPINE L1-L4: Current: BMD 1.219 g/cm2, Z-score 2.5, T-score 0.3, normal, 2.4% increase from previous, 3.3% decrease from baseline (<5% change is not significant). Prior: BMD 1.191 g/cm2. Baseline: BMD 1.261 g/cm2. IDENTIFIED RISK FACTORS: Early menopause, secondary osteoporosis. HISTORY OF FRACTURE: None listed. MEDICATIONS: Calcium, vitamin D. MM/XR DEXA axial skeleton IMPRESSION: 1. DIAGNOSIS: Osteopenia based on the lowest T-score value of -1.5 in the femoral neck applying World Health Organization criteria. 2. 10-YEAR FRACTURE RISK PREDICTION, FRAX: Major osteoporotic fracture (clinical spine, forearm, hip or shoulder) 11.4%. Hip fracture 2.7%. 3. Treatment Recommendations: NOF guidelines recommend consideration for treatment in postmenopausal women and men age 50 and older presenting with the following: -A hip or vertebral (clinical or morphometric) fracture. -T-score less than or equal to -2.5 at the femoral neck or spine after appropriate evaluation to exclude secondary causes. -Low bone mass at the hip or spine and a 10-year fracture probability by FRAX of greater than or equal to 3% for hip fracture or greater than or equal to 20% for major osteoporotic fracture based on the [place] adapted WHO algorithm. 4. Other Recommendations: All treatment decisions require clinical judgment and consideration of individual patient factors, including patient preferences, comorbidities, previous drug use, risk factors not captured in the FRAX model (e.g. frailty, falls, vitamin D deficiency, increased bone turnover, interval significant decline in bone density) and possible under or overestimation of fracture risk by FRAX. Additional medical evaluation for secondary cause of low bone mineral density may be appropriate. FUTURE SCAN RECOMMENDATION: People with diagnosed cases of osteoporosis or at high risk for fracture should have regular bone mineral density tests. For patients eligible for Medicare, routine testing is allowed once every 2 years. The testing frequency can be increased to one year for patients who have rapidly progressing disease, those who are receiving or discontinuing medical therapy to restore bone mass, or have additional risk factors. Electronically signed by: Brayden Dutta MD 11/29/2023 11:04 AM NEGRITO
== END 2023-11-23 09:56 | disposition home or self-care (01) ==
LOC: HO.MAMMO 09:55
PROVIDERS: PCP Internal Medicine; Visit Provider Obstetrics & Gynecology
DX: Z13.820 Encounter for screening for osteoporosis (principal); Z78.0 Asymptomatic menopausal state
CPT/HCPCS: 77080

== ENCOUNTER 2023-11-30 11:42 | Outpatient (AMB) | payer MEDICARE, SELFPAY ==
--- NOTE | 2023-11-30 11:42 | A.OFFVIS_ITS ---
Intake Visit Reasons: Dexa results Web Database Developer Required: No Information Interpreted: non-clinical & clinical Allergies No Known Allergies [No Known Allergies*] Allergy (Verified 10/20/23 08:42) HPI Comments Details: The patient scheduled tele health visit for follow up regarding DEXA scan results. T score @ spine and femoral Neck respectively were=+0.3 /-1.5 and 10 year FRAX risk = 11.4/2.7% for severe osteoporosis and fracture. PFSH Medical History Arthritis Spinal stenosis IBS (irritable bowel syndrome) Hyperlipidemia GERD (gastroesophageal reflux disease) Surgical History Hx of colonoscopy Family History Sister Breast CA Social History Housing: House Alcohol intake: current Alcohol intake frequency: 0-2 drinks per day Alcohol type: wine Patient Tobacco Use Status: Never used Tobacco Current occupational status: retired Sexual orientation: Straight/Heterosexual Gender identity: Female Female Reproductive History Menstrual Age of Menarche: 11 Review of Systems Const All systems reviewed & are unremarkable except as noted in HPI and below Reports as per HPI and Reports no additional complaints GI Reports no additional complaints Reports no additional complaints Telehealth Telehealth Telehealth Platform: Telephone Location of provider rendering services: practice address Location of patient: address on file Patient Identification confirmed using: Name, : Yes Telehealth method: voice only Patient verbally consented to treatment: Yes Patient verbally consented to billing insurance company: Yes Patient informed of any privacy concerns related to visit: Yes Assessment & Plan Assessment & Plan (1) Osteopenia: Code(s): M85.80 - Other specified disorders of bone density and structure, unspecified site Category: Medical Plan: Discussed with the patient the DEXA results and FRAX risk. FRAX risk and T score showed no evidence of osteoporosis. Discussed with the patient all the options for osteoporosis prevention including lifestyle modifications including Ca+D supplements 1200 mg po qd/800 MIU, Weight bearing exercises and proteine supplements. The patient verbalized understanding and agreed plan will repeat DEXA in 2 years. I spent a total of 20 minutes reviewing the chart, talking to the patient via phone and documenting in the medical record. Coding Level of Care Code Tele Est Pt Level 1 (91945) Diagnoses Osteopenia M85.80
== END 2023-11-30 14:43 | disposition home or self-care (01) ==
LOC: HO.HWS 11:42
PROVIDERS: PCP Internal Medicine; Visit Provider Obstetrics & Gynecology
DX: M85.80 Other specified disorders of bone density and structure, unspecified site (principal)
CPT/HCPCS: 99211

== ENCOUNTER → 2023-11-30 11:42 | Outpatient (BNVA) | payer MEDICARE, SELFPAY | PROVIDERS: PCP Internal Medicine; Visit Provider Obstetrics & Gynecology ==

== ENCOUNTER 2024-02-13 09:51 | Outpatient (REF) | payer MEDICARE, SELFPAY ==
[2024-02-13 10:10] LABS: MANUAL DIFF FLAG NO
[2024-02-13 10:41] LABS: Basophils Percent Auto 0.6 % (0-2); Eosinophils Absolute Auto 0.2 X10*3/uL (0.0-0.4); Eosinophils Percent Auto 2.4 % (0-4); Hematocrit 42.5 % (37.0-47.0); Imm Gran Abs Auto 0.02 X10*3/uL (0.00-0.03); Imm Gran Pct Auto 0.3 % (0.0-0.4); Lymphocytes Absolute Auto 1.7 X10*3/uL (1.2-4.9); Lymphocytes Percent Auto 27.3 % (20-40); Mean Corpuscular HGB Conc 32.9 g/dl (31.0-35.0); Mean Corpuscular Hemoglobin 30.2 pg (27.0-33.0); Mean Corpuscular Volume 91.6 fL (80.0-98.0); Mean Platelet Volume 9.1 fL (9.4-12.3); Monocytes Absolute Auto 0.4 X10*3/uL (0.1-1.2); Monocytes Percent Auto 6.9 % (2-11); Neutrophils Absolute Auto 3.9 x10*3/uL (2.0-8.3); Neutrophils Percent Auto 62.5 % (45-73); Platelet Count 234 X10*3/uL (160-400); Red Blood Count 4.64 X10*6/uL (4.20-5.50); Red Cell Distribution Width 13.3 % (11.0-16.0); White Blood Count 6.2 X10*3/uL (4.8-10.8)
[2024-02-13 11:17] LABS: Alanine Aminotransferase 17 U/L (0-31); Albumin Level 4.3 g/dL (3.5-5.0); Alkaline Phosphatase 76 U/L (39-117); Anion Gap 13 (12-20); Aspartate Amino Transferase 21 U/L (5-31); Bilirubin Total 0.4 mg/dL (0.0-1.0); Blood Urea Nitrogen 18 mg/dL (9-16); Calcium 9.9 mg/dL (8.4-10.2); Carbon Dioxide 28 mmol/L (22-29); Chloride 105 mmol/L (96-108); Estimated Glomerular Filt Rate 58; Glucose Random 100 mg/dL (60-115); Potassium 4.4 mmol/L (3.3-5.1); Sodium 142 mmol/L (135-145); Total Protein 6.9 g/dL (6.5-8.0)
[2024-02-13 11:24] LABS: Free T4 (Free Thyroxine) 0.96 ng/dL (0.71-1.85); Thyroid Stimulating Hormone 3.37 uIU/mL (0.32-4.0)
[2024-02-13 11:28] LABS: Vitamin B12 1394 pg/mL (200-900)
== END 2024-02-13 09:52 | disposition home or self-care (01) ==
LOC: HO.LAB 09:51
PROVIDERS: PCP Internal Medicine; Visit Provider Internal Medicine
DX: E78.00 Pure hypercholesterolemia, unspecified (principal); K21.9 Gastro-esophageal reflux disease without esophagitis; R53.83 Other fatigue; K58.9 Irritable bowel syndrome, unspecified; R79.82 Elevated C-reactive protein (CRP)
CPT/HCPCS: 36415; 80053; 82607; 84439; 84443; 85025

== ENCOUNTER 2024-06-30 07:52 | Outpatient (REF) | payer MEDICARE, SELFPAY ==
--- OUTSIDE RECORDS SUMMARY | 2024-06-30 07:53 | XMS_ITS | Patient Health Record ---
Author Organization [facility] Address [address] [place] [address] Care Team Providers Care Emergency Management Program Specialist Name Role Phone Abdirahman Malcolm MD Primary Care Provider Alan Mills Unavailable [phone] Allergies No Known Allergies Reason For Referral No Information Medications Medication SIG (Take, Route, Frequency, Duration) Notes Start Date End Date Status Dicyclomine HCl 20 MG 1 tablet Orally Th ree times a day for 30 day(s) Active B12 Folate 800-800 MCG as directed Orally Active Vytorin 10-40 MG 1 tablet Orally Once a day for 30 day(s) Active Pantoprazole Sodium 40 MG 1 tablet Orall y Once a day for 30 day(s) Active Calcium + Vitamin D3 600-5 MG-MCG 1 tablet with a meal Orally Once a day for 30 day(s) Active tiZANidine HCl 4 MG 1 tablet as needed O rally Three times a day Active Immunizations Vaccine Route Administration Date Status Comme nts Influenza Unknown 11/28/2019 Administered Social History Tobacco Use: Social History Observation Description Date Details (start date - stop date) Never Smoker NA - NA Tobacco Use/Smoking Question Answer Notes Patient is a nonsmoker Alcohol Screen Question Answer Notes Did you have a drink contain ing alcohol in the past year? Yes How often did you have a dri nk containing alcohol in the past year? 2 to 3 times a week (3 points) How many drinks did you have on a typical day when you were drinking in the past year? 1 or 2 drinks (0 point) How often did you have 6 or more drinks on one occasion in the past year? 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) Gastric polyps (K31.7) Active confirmed Problem Esophageal reflux finding (387805239) Gastroesophageal reflux (K21.9) Active confirmed Problem 579098896 Irritable bowel syndrome with constipation (K58.1) Active confirmed Problem Diverticulosis of colon (429264282) Diverticulosis of colon (K57.30) Active confirmed Problem 578319290 Gastroesophageal reflux disease, unspecified whether esophagitis present (K21.9) Active confirmed Plan Of Treatment Pending Test Test Name Order Date Pathology 01/23/2021 Future Test Test Name Order Date UPPER GI ENDOSCOPY 12/05/2020 COLONOSCOPY 12/05/2020 Insurance Providers Payer Name Payer Address Payer Phone Subscriber Number Group Number Insured Name Patient Relationship to Insured Coverage Start Date Coverage End Date [facility] [address] [address] [place] [address] [id number] CAROLARTI BATRESRED Self - patient is the insured Medical (General) History Medical History History ICD Code Tubular adenoma removed in by Dr. Walden; she had a negative colonoscopy in 2004; IBS GERD Hyperlipidemia Denies [place],DM,CVA,Lung disease,renal dise ase Surgical History Surgery Date(Month/Year)
== END 2024-06-30 07:53 | disposition home or self-care (01) ==
LOC: HO.MAMMO 07:52
PROVIDERS: Visit Provider Internal Medicine
DX: Z12.31 Encounter for screening mammogram for malignant neoplasm of breast (principal)
CPT/HCPCS: 77063; 77067

== ENCOUNTER → 2024-06-30 08:15 | Outpatient (BNV) | payer MEDICARE, SELFPAY | PROVIDERS: Visit Provider Internal Medicine | DX: Z12.31 Encounter for screening mammogram for malignant neoplasm of breast (principal) | CPT/HCPCS: 77063; 77067 ==

== ENCOUNTER 2024-09-24 08:48 | Outpatient (AMB) | payer MEDICARE, SELFPAY ==
[2024-09-24 08:49] VITALS: BP 128/76; PULSE 93; TEMP 36.6; O2SAT 99; BMI 21.4
--- NOTE | 2024-09-24 08:49 | MHC.PC.OV ---
Vital Signs 09/24/24 08:49 Height 5 ft 3 in Weight 121 lb BMI 21.4 BP 128/76 Blood Pressure Location Lt brachial Position Sitting Pulse 93 Pulse Source Pulse Oximeter Temp 97.9 F Temp Source Axillary Pulse Oximetry (%) 99 Oxygen Delivery Method Room Air Intake Visit Reasons: Routine Animal Behaviourist Required: No Accompanied by: Self / Same As Patient Allergies No Known Allergies (No Known Allergies*) Allergy (Verified 09/24/24 08:50) Tobacco use date assessed: 09/24/24 Fall risk assessment: 1 Fall in past year Last assessed Fall Risk: 09/24/24 Dental Screening Dental Screen Date: 09/24/24 Did you have a dental visit in the last 12 months?: Yes Did you have a dental problem in the last 6 months where you did not have access to dental care?: No [facility] Medical History (Updated 09/24/24 @ 09:10 by Olvin Raymundo MD) Arthritis Spinal stenosis IBS (irritable bowel syndrome) Hyperlipidemia GERD (gastroesophageal reflux disease) Surgical History Hx of colonoscopy (~01/23/21) Family History (Updated 09/24/24 @ 09:00 by Juliane Banegas MA) Sister Breast CA Mother No problems noted. Father No problems noted. Social History Housing: House Alcohol intake: current Alcohol intake frequency: 0-2 drinks per day Alcohol type: wine Patient Tobacco Use Status: Never used Tobacco e-Cigarette/Vaping Use: Never Used service: No Current occupational status: retired Sexual orientation: Straight/Heterosexual Gender identity: Female Cognitive needs: No Hearing needs: No Vision needs: Yes (rx glasses) Female Reproductive History Menstrual Age of Menarche: 11 Questionnaire PHQ-9 Over the last 2 weeks, how often have you been bothered by any of the following problems? 1. Little interest or pleasure in doing things: not at all 2. Feeling down, depressed, or hopeless: not at all 3. Trouble falling or staying asleep, or sleeping too much: not at all 4. Feeling tired or having little energy: not at all 5. Poor appetite or overeating: not at all 6. Feeling bad about yourself - or that you are a failure or have let yourself or your family down: not at all 7. Trouble concentrating on things, such as reading the newspaper or watching television: not at all 8. Moving or speaking so slowly that other people could have noticed. Or the opposite - being so fidgety or restless that you have been moving around a lot more than usual: not at all 9. Thoughts that you would be better off or of hurting yourself in some way: not at all Total score: 0 Depression Screening Interpretation: Negative Depression Screening Done: Yes Source: Developed by Drs. Alan Salmeron, Emelina Iglesias, Brandyn Daley and colleagues, with an educational elvia from [employer] Thrive Questionnaire Date Thrive assessed: 09/24/24 I am a: Patient Within the past 12 months, did the food you bought not last and you didn't have the money to get more?: Never true Within the past 12 months, did you worry whether your food would run out before you got money to buy more?: Never true Do you have trouble paying for medicines?: No Do you have trouble getting transportation to medical appointments?: No Do you have trouble paying your heating and electricity bill?: No Do you have trouble taking care of your child, family member or friend?: No Do you have trouble with day-to-day activities such as bathing, preparing meals, shopping, managing finances, etc.?: No Are you currently unemployed and looking for a job?: No Currently or been in a relationship where the following occur: No concerns reported THRIVE Score: 0 AUDIT C Alcohol Use Questionnaire (AUDIT-C) 1. How often do you have a drink containing alcohol?: Monthly or less 2. How many drinks containing alcohol do you have on a typical day when you are drinking?: 1 or 2 3. How often do you have six or more drinks on one occasion?: Less than monthly Total Score: 2 PARAS-7 AMB Questionnaire PARAS-7 Date PARAS - 7 assessed: 09/24/24 Feeling nervous, anxious, or on edge: 0 = Not at all Not being able to stop or control worryin = Not at all Worrying too much about different things: 0 = Not at all Trouble relaxin = Not at all Being so restless that it is hard to sit still: 0 = Not at all Becoming easily annoyed or irritable: 0 = Not at all Feeling afraid as if something awful might happen: 0 = Not at all Total PARAS-7 score (0-4 normal; 5-9 mild; 10-14 moderate; 15-21 severe): 0 Source: Developed by Drs. Alan Salmeron, Emelina Iglesias, Brandyn Daley and colleagues, with an educational elvia from [employer] Physical exam (Primary Care) Vital Signs: Last Vital Signs Temp 97.9 F 09/24/24 08:49 Pulse 93 09/24/24 08:49 BP 128/76 09/24/24 08:49 Pulse Ox 99 09/24/24 08:49 Oxygen Delivery Method Room Air 09/24/24 08:49 Care Plan Goal for BP management: BP in range BMI result Body Mass Index 21.4 Tobacco/Smoking Status: Tobacco use Status Tobacco use date assessed 09/24/24 09/24/24 08:51 Patient Tobacco Use Status Never used Tobacco 09/24/24 08:51 e-Cigarette/Vaping Use Never Used 09/24/24 09:00 PHQ-9: PHQ-9 Score PHQ-9: Total score 0 09/24/24 08:51 Depression Screening Interpretation: Negative Thrive Assessment: Date of Thrive Assessment Date Thrive assessed 09/24/24 09/24/24 08:51 Currently or been in a relationship where the following occur: No concerns reported Advance Care Planning discussion: Exists, not on file Date of discussion: 09/24/24 Who was present: Patient Forms completed: Health Care Proxy and MOLST Actual minutes spent: 5 Coding Level of Care Code New Pt Level 4 (87239) Complex EM visit Add On G2211 Diagnoses Hyperlipidemia E78.5 Additional Codes Vital Signs *Quality* - Advance Care Planning discussion: Exists, not on file ([id number]) Assessment & Plan Assessment & Plan (1) Hyperlipidemia: Code(s): E78.5 - Hyperlipidemia, unspecified Category: Medical Plan: Blood work has been ordered. Will adjust meds accordingly Plan History of Present Illness - The patient is a 79-year-old female presenting for a routine follow-up and management of chronic conditions. - Cervical arthritis: The patient reports a history of arthritis in the neck, with intermittent pain that varies in intensity. - She manages the pain with extra-strength Tylenol and occasionally uses Biofreeze for relief. - Thumb arthritis: The patient also experiences arthritis in the thumb, managed similarly with [id number] medications. - Hyperlipidemia: The patient is on a combination cholesterol medication and requires periodic blood work to monitor lipid levels. - She plans to undergo fasting blood work soon, as she had breakfast on the day of the visit. - Cataracts: The patient has undergone cataract surgery and reports no issues with vision, although she prefers large print books for reading. - She avoids driving at night due to sensitivity to bright lights. Social History - Functional status: The patient is able to perform all activities of daily living independently, including driving, although she avoids driving at night due to light sensitivity. - Reading habits: Prefers large print books for reading due to vision changes post-cataract surgery. Review of Systems - Musculoskeletal: Reports intermittent neck pain and thumb pain due to arthritis. - Ophthalmologic: Denies current vision problems post-cataract surgery but reports sensitivity to bright lights at night. - Gastrointestinal: Denies abdominal pain. Physical Exam General: Cooperative and healthy appearing Nutritional Appearance: Well nourished Orientation/consciousness: Patient oriented x3 Limitations: No limitations Head: Normal to inspection General: Appearance normal, both eyes and all related structures Neck: Normal visual inspection Chest: Normal palpation of entire chest wall Respiratory: N ormal respiratory effort Neurology: Patient oriented x3, able to perform activities of daily living independently, prefers large print books for reading, avoids driving at night due to bright lights. Results Plan 1. Cervical Arthritis - Continue current management with extra-strength Tylenol and Biofreeze as needed for pain relief. - Consider physical therapy if symptoms worsen. 2. Thumb Arthritis - Continue current management with [id number] medications for pain relief. 3. Hyperlipidemia - Repeat fasting blood work to monitor cholesterol levels. - Continue current cholesterol medication regimen. 4. Cataracts (Post-Surgery) - No further intervention required at this time as the patient reports no current vision issues. Discussion Notes I discussed with the patient the management of her arthritis, recommending continued use of extra-strength Tylenol and Biofreeze, and considering physical therapy if symptoms worsen. We also reviewed her cholesterol management plan, emphasizing the importance of fasting blood work and continuing her current medication regimen. The patient is aware of her post-cataract surgery status and reports no current vision issues, thus no further intervention is needed. Patient Instructions - Continue taking extra-strength Tylenol and use Biofreeze as needed for arthritis pain. - Schedule and complete fasting blood work for cholesterol monitoring. - Continue current cholesterol medication as prescribed. - Follow up in six months for routine check-up. Orders: Orders Complete Blood Count no Diff Today E78.5 - Hyperlipidemia, unspecified Lipid Panel Today E78.5 - Hyperlipidemia, unspecified Liver Panel Today E78.5 - Hyperlipidemia, unspecified Thyroid Stimulating Hormone Today E78.5 - Hyperlipidemia, unspecified UA and rflx microscopic Today E78.5 - Hyperlipidemia, unspecified Basic Metabolic Panel Today E78.5 - Hyperlipidemia, unspecified Medications: New dicyclomine 20 mg PO BID 180 tabs 1RF pantoprazole 40 mg PO DAILY 90 tabs 1RF cyanocobalamin (vitamin B-12) (Vitamin B-12) 1,000 mcg PO DAILY 90 tabs 1RF Refilled ezetimibe-simvastatin 10-40 mg (Vytorin) 1 tab PO BEDTIME 90 tabs 1RF
--- OUTSIDE RECORDS SUMMARY | 2024-09-24 09:00 | XMS_ITS | Patient Health Record ---
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) Gastric polyps (K31.7) Active confirmed Problem Esophageal reflux finding (586027805) Gastroesophageal reflux (K21.9) Active confirmed Problem 660206526 Irritable bowel syndrome with constipation (K58.1) Active confirmed Problem Diverticulosis of colon (952553877) Diverticulosis of colon (K57.30) Active confirmed Problem 368988160 Gastroesophageal reflux disease, unspecified whether esophagitis present (K21.9) Active confirmed Plan Of Treatment Pending Test Test Name Order Date Pathology 01/23/2021 Future Test Test Name Order Date UPPER GI ENDOSCOPY 12/05/2020 COLONOSCOPY 12/05/2020 Insurance Providers Payer Name Payer Address Payer Phone Subscriber Number Group Number Insured Name Patient Relationship to Insured Coverage Start Date Coverage End Date [facility] [address] [address] [place] [address] [id number] CAROLARTI BATRESRED Self - patient is the insured Medical (General) History Medical History History ICD Code Tubular adenoma removed in by Dr. Walden; she had a negative colonoscopy in 2004; IBS GERD Hyperlipidemia Denies [place],DM,CVA,Lung disease,renal dise ase Surgical History Surgery Date(Month/Year)
== END 2024-09-24 09:10 | disposition home or self-care (01) ==
LOC: HO.HMCHD 08:49
PROVIDERS: PCP Internal Medicine; Visit Provider Internal Medicine
DX: E78.5 Hyperlipidemia, unspecified (principal); Z00.00 Encounter for general adult medical examination without abnormal findings

== ENCOUNTER → 2024-09-24 08:48 | Outpatient (BNVA) | payer MEDICARE, SELFPAY | PROVIDERS: PCP Internal Medicine; Visit Provider Internal Medicine | DX: E78.5 Hyperlipidemia, unspecified (principal) | CPT/HCPCS: 99202 ==

== ENCOUNTER 2024-09-25 07:35 | Outpatient (REF) | payer MEDICARE, SELFPAY ==
[2024-09-25 09:52] LABS: Hematocrit 43.1 % (37.0-47.0); Hemoglobin 14.2 g/dl (12.0-16.0); Mean Corpuscular HGB Conc 32.9 g/dl (31.0-35.0); Mean Corpuscular Hemoglobin 29.6 pg (27.0-33.0); Mean Corpuscular Volume 89.8 fL (80.0-98.0); NRBC Abs Auto 0.000 X10*3/uL (0.0-0.012); NRBC Pct Auto 0.0 /100WBC (0.0-0.2); Platelet Count 278 X10*3/uL (160-400); Red Blood Count 4.80 X10*6/uL (4.20-5.50); White Blood Count 7.6 X10*3/uL (4.8-10.8)
[2024-09-25 10:08] LABS: Alanine Aminotransferase 20 U/L (0-31); Albumin Level 4.7 g/dL (3.5-5.0); Alkaline Phosphatase 74 U/L (39-117); Anion Gap 12 (12-20); Aspartate Amino Transferase 26 U/L (5-31); Blood Urea Nitrogen 15 mg/dL (9-16); Calcium 9.6 mg/dL (8.4-10.2); Carbon Dioxide 28 mmol/L (22-29); Chloride 104 mmol/L (96-108); Cholesterol 213 mg/dL (<200); Estimated Glomerular Filt Rate 56; HDL Cholesterol 97 mg/dL (>40); Potassium 4.2 mmol/L (3.3-5.1); Sodium 140 mmol/L (135-145); Total Protein 7.3 g/dL (6.5-8.0); Triglycerides 107 mg/dL (<150)
[2024-09-25 10:22] LABS: Thyroid Stimulating Hormone 3.44 uIU/mL (0.32-4.0)
== END 2024-09-25 07:36 | disposition home or self-care (01) ==
LOC: HO.10HDL 07:35
PROVIDERS: Visit Provider Internal Medicine
DX: E78.5 Hyperlipidemia, unspecified (principal)
CPT/HCPCS: 36415; 80048; 80061; 80076; 84443; 85027

== ENCOUNTER 2024-10-24 08:41 | Outpatient (AMB) | payer MEDICARE, SELFPAY ==
--- NOTE | 2024-10-24 08:51 | A.OFFVIS_ITS ---
Vital Signs 10/24/24 08:56 Height 5 ft 3 in Weight 120 lb BMI 21.3 BP 124/72 Intake Visit Reasons: annual Bottom Man: Bottom Man Present ([place]) Accompanied by: Self / Same As Patient Allergies No Known Allergies (No Known Allergies*) Allergy (Verified 10/24/24 08:54) Is last menstrual period known: No Post menopausal: Yes Patient : No HPI Comments Details: Presenting for annual exam. No complaints. Last Pap/HPV was many years ago no history of abnormal Pap smear Last Mammogram was BI-RADS 1 in 07/20 Last Colonoscopy was in 01/15 Last DEXA scan was in 11/18 was in the low risk category [facility] Medical History Arthritis Spinal stenosis IBS (irritable bowel syndrome) Hyperlipidemia GERD (gastroesophageal reflux disease) Surgical History Hx of colonoscopy (~01/23/21) Family History Sister Breast CA Mother No problems noted. Father No problems noted. Social History Housing: House Alcohol intake: current Alcohol intake frequency: 0-2 drinks per day Alcohol type: wine Patient Tobacco Use Status: Never used Tobacco e-Cigarette/Vaping Use: Never Used Patient : No service: No Current occupational status: retired Sexual orientation: Straight/Heterosexual Gender identity: Female Cognitive needs: No Hearing needs: No Vision needs: Yes (rx glasses) Female Reproductive History Menstrual Age of Menarche: 11 control method: none Date of Mammogram: 06/30/24 (bi rad 1) Date of last Bone Density Screenin11/23/23 Review of Systems Const All systems reviewed & are unremarkable except as noted in HPI and below Card Reports as per HPI Resp Reports as per HPI GI Reports as per HPI and Reports no additional complaints Reports as per HPI Physical Exam Vital Signs: Last Vital Signs BP 124/72 10/24/24 08:56 BMI result Body Mass Index 21.3 Const General: cooperative, healthy appearing and comfortable Chest Chest palpation & inspection: normal inspection of the chest and normal palpation of entire chest wall Breast/axilla inspection: normal inspection of the breasts and normal inspection of the axillae Breast/axilla palpation: normal palpation of the breasts, normal palpation of the axillae and no axillary lymphadenopathy Resp Effort & Inspection: normal respiratory effort Auscultation: clear to auscultation bilaterally Percussion: percussion normal Cardio Palpation: normal PMI Rate: regular rate Rhythm: regular rhythm Heart sounds: no murmurs and no rubs Peripheral pulses: Peripheral pulses 2+ throughout GI Inspection: Yes normal to inspection Palpation (GI): Soft to palpation, nontender, no guarding, not rigid and No hepatosplenomegaly present Percussion: Yes normal to percussion Auscultation: normal bowel sounds Rectal Exam - Female: deferred General: Yes bladder normal to palpation External Female Exam: No lesion Speculum Exam - Vagina: normal appearance of the vagina, normal palpation, normal vaginal discharge and not erythematous Speculum Exam - Cervix: normal appearance of the cervix and normal palpation Bimanual exam- vagina & uterus: normal bimanual exam, normal palpation, uterine size normal, bladder normal to palpation, consistency normal and normal palpation Bimanual Exam- Adnexa, other: normal adnexae, no masses and no tenderness Assessment & Plan Assessment & Plan (1) Well woman exam: Code(s): Z01.419 - Encounter for gynecological examination (general) (routine) without abnormal findings Category: Medical Plan: Co testing not indicated Counseled the patient about the recommended dietary allowance of 1200 mg of Calcium & 600 IU of vitamin D. Instructions given the patient to schedule next screening Mammogram in 07/21. The patient was instructed to perform monthly self-breast exams and schedule annual exam in a year. All questions answered and the patient verbalized understanding. Coding Level of Care Code Est Pt Prev Care >65y(99825) Diagnoses Well woman exam Z01.419
[2024-10-24 08:56] VITALS: BP 124/72; BMI 21.3
--- OUTSIDE RECORDS SUMMARY | 2024-10-24 08:57 | XMS_ITS | Patient Health Record ---
Author Organization [facility] Address [address] [place] [address] Care Team Providers Care Payroll Accountant Name Role Phone Yun (RETIRED) Abdirahman PATEL Primary Care Provide r Unavailable Silvia Alan Unavailable [phone] Allergies No Known Allergies Reason For Referral [...] Problem Status W/U Status Risk Notes Problem 551676574 Encounter for screening for malignant neoplasm of colon (Z12.11) Active confirmed Problem 439057325 History of adenomatous polyp of colon (Z86.010) Active confirmed Problem Benign neoplasm of stomach (43519382) Gastric polyps (K31.7) Active confirmed Problem Esophageal reflux finding (741595891) Gastroesophageal reflux (K21.9) Active confirmed Problem 459399438 Irritable bowel syndrome with constipation (K58.1) Active confirmed Problem Diverticulosis of colon (828263437) Diverticulosis of colon (K57.30) Active confirmed Problem 753216618 Gastroesophageal reflux disease, unspecified whether esophagitis present (K21.9) Active confirmed Plan Of Treatment Pending Test Test Name Order Date Pathology 01/23/2021 Future Test Test Name Order Date UPPER GI ENDOSCOPY 12/05/2020 COLONOSCOPY 12/05/2020 Insurance Providers Payer Name Payer Address Payer Phone Subscriber Number Group Number Insured Name Patient Relationship to Insured Coverage Start Date Coverage End Date [facility] [address] [address] [place] [address] [id number] CAROLARTI BATRESRED Self - patient is the insured Medical (General) History Medical History History ICD Code Tubular adenoma removed in by Dr. Walden; she had a negative colonoscopy in 2004; IBS GERD Hyperlipidemia Denies [place],DM,CVA,Lung disease,renal dise ase Surgical History Surgery Date(Month/Year)
== END 2024-10-24 09:19 | disposition home or self-care (01) ==
LOC: HO.HWS 08:42
PROVIDERS: PCP Internal Medicine; Visit Provider Obstetrics & Gynecology
DX: Z01.419 Encounter for gynecological examination (general) (routine) without abnormal findings (principal)
CPT/HCPCS: 99397; 99459

== ENCOUNTER → 2024-10-24 08:41 | Outpatient (BNVA) | payer MEDICARE, SELFPAY | PROVIDERS: PCP Internal Medicine; Visit Provider Obstetrics & Gynecology | DX: Z01.419 Encounter for gynecological examination (general) (routine) without abnormal findings (principal) | CPT/HCPCS: 99397 ==

== ENCOUNTER 2025-03-13 07:30 | Outpatient (REF) | payer MEDICARE, SELFPAY ==
--- OUTSIDE RECORDS SUMMARY | 2025-03-13 07:34 | XMS_ITS | Patient Health Record ---
Author Organization [facility] Address [address] [place] [address] Care Team Providers Care Restaurant Service Manager Name Role Phone Yun (RETIRED) Abdirahman PATEL Primary Care Provide r Unavailable Alan Vega Unavailable [phone] Allergies No Known Allergies Reason For Referral No Information Medications Medication SIG (Take, Route, Frequency, Duration) Notes Start Date End Date Status Dicyclomine HCl 20 MG Tablet 1 tablet Orally Three times a day; Duration: 30 day(s) Active B12 Folate 800-800 MCG Capsule as directed Orally Active Vytorin 10-40 MG Tablet 1 tablet Orally Once a day; Duration: 30 day(s) Active Pantoprazole Sodium 40 MG Tablet Delayed Release 1 tablet Orally Once a day; Duration: 30 day(s) Active Calcium + Vitamin D3 600-5 MG-MCG Tablet 1 tablet with a meal Orally Once a day; Duration: 30 day(s) Active tiZANidine HCl 4 MG Tablet 1 tablet as n eeded Orally Three times a day Active Immunizations Vaccine Route Administration Date Status Comme nts Influenza Unknown 11/28/2019 Administered Social History Tobacco Use: Social History Observation Description Date Details (start date - stop date) Never Smoker NA - NA Social History Drugs/Alcohol: Social Info Question Answer Notes Alcohol Screen Did you have a drink containing alcohol in the past year? Yes How often did you have a drink containing alcohol in the past year? 2 to 3 times a week (3 points) How many drinks did you have on a typical day when you were drinking in the past year? 1 or 2 drinks (0 point) How often did you have 6 or more drinks on one occasion in the past year? Never (0 point) Points 3 Interpretation Positive Tobacco Use: Social Info Question Answer Notes Tobacco Use/Smoking Patient is a nonsmoker Additional Details Category Social Info Options Details Miscellaneous: Marital status: Occupation: retired Section Notes: Nonsmoker; no sig alcohol Problems Problem Type SNOMED Code ICD Code Onset Dates Problem Status W/U Status Risk Notes Problem Screening for malignant neoplasm of colon (254743457) Encounter for screening for malignant neoplasm of colon (Z12.11) Active confirmed Problem History of adenomatous polyp of colon (291127941) History of adenomatous polyp of colon (Z86.010) Active confirmed Problem Benign neoplasm of stomach (06267892) Gastric polyps (K31.7) Active confirmed Problem Esophageal reflux finding (069686828) Gastroesophageal reflux (K21.9) Active confirmed Problem Irritable bowel syndrome characterized by constipation (994226086) Irritable bowel syndrome with constipation (K58.1) Active confirmed Problem Diverticulosis of colon (497668761) Diverticulosis of colon (K57.30) Active confirmed Problem Gastroesophageal reflux disease (432432145) Gastroesophageal reflux disease, unspecified whether esophagitis present (K21.9) Active confirmed Plan Of Treatment Pending Test Test Name Order Date Pathology 01/23/2021 Future Test Test Name Order Date UPPER GI ENDOSCOPY 12/05/2020 COLONOSCOPY 12/05/2020 Insurance Providers Payer Name Payer Address Payer Phone Subscriber Number Group Number Insured Name Patient Relationship to Insured Coverage Start Date Coverage End Date [facility] [address] [place] [address] [id number] LAURYN FIERRO Self - patient is the insured Medical (General) History Medical History History ICD Code Tubular adenoma removed in by Dr. Walden; she had a negative colonoscopy in 2004; IBS GERD Hyperlipidemia Denies [place],DM,CVA,Lung disease,renal dise ase Surgical History Surgery Date(Month/Year)
[2025-03-13 10:31] LABS: Appearance Urine Clear; Glucose Urine UA Negative (Negative); PH 6.0 (5.0-9.0); Specific Gravity - Urine 1.020 (1.005-1.025); UMIC TRIGGER UA YES
== END 2025-03-13 07:31 | disposition home or self-care (01) ==
LOC: HO.10HDL 07:30
PROVIDERS: Visit Provider Internal Medicine
DX: E78.5 Hyperlipidemia, unspecified (principal)
CPT/HCPCS: 81001

== ENCOUNTER 2025-03-18 08:54 | Outpatient (AMB) | payer MEDICARE, SELFPAY ==
--- NOTE | 2025-03-18 09:01 | A.OFFPC_ITS ---
Vital Signs 03/18/25 09:03 03/18/25 10:46 Height 5 ft 3 in Weight 120 lb 6 oz BMI 21.3 BP 152/76 H 132/78 Blood Pressure Location Lt brachial Respiration 16 Pulse 76 Pulse Source Pulse Oximeter Temp 97.4 F Temp Source Temporal Artery Scan Pulse Oximetry (%) 96 Oxygen Delivery Method Room Air Intake Visit Reasons: routine - see comments Steward/Stewardess Third Required: No Accompanied by: Self / Same As Patient Allergies No Known Allergies (No Known Allergies*) Allergy (Verified 03/18/25 09:02) Medication List - Last Reconciled 03/18/25 by JULIO Salmon [Calcium + D ] cyanocobalamin (vitamin B-12) (Vitamin B-12) 1,000 mcg PO DAILY dicyclomine 20 mg PO BID ezetimibe-simvastatin 10-40 mg (Vytorin) 1 tab PO BEDTIME pantoprazole 40 mg PO DAILY Tobacco use date assessed: 09/24/24 Dental Screening Dental Screen Date: 09/24/24 HPI HPI Comments History of Present Illness Details History of Present Illness The patient is a 79 year old female with osteoarthritis, spinal stenosis, IBS, HLD, GERD, CKD presenting to establish care and for chronic condition management, medication refills, and evaluation of new musculoskeletal complaints. Her chronic conditions include irritable bowel syndrome (IBS), which is managed with dicyclomine two times a day and prune juice. She also has acid reflux, which is well-controlled with pantoprazole, and is on medication for cholesterol. She requests refills for all her medications. She reports new onset sciatica, for which she uses Biofreeze. The pain radiates down her leg to the ankle, causing an ache, and there is no history of ankle injury or fractures. She also reports arthritis in both thumbs with associated swelling, occasional clicking, and manages flares with Tylenol Arthritis. Regarding health maintenance, her last blood work was in September and was normal. She had a mammogram in June and saw her learning and development director in September. Her last colonoscopy was in 2020, and she is approaching 80 years old. She notes her vision has been getting worse and plans to see an eye doctor. Medical History: - Irritable bowel syndrome - Hypercholesterolemia - Acid reflux - Sciatica - Arthritis of bilateral thumbs Medications: - Dicyclomine for Irritable Bowel Syndro me, taken twice daily - Unspecified medication for cholesterol - Pantoprazole for acid reflux - Tylenol Arthritis as needed for thumb pain - Biofreeze topical for sciatica Health Maintenance Plan for a follow-up visit in 3 months. She will be due for lab work at that time, and an order will be placed. The patient will follow up with an eye doctor for worsening vision. The need for future colonoscopies will be double-checked. Results - Labs: Blood work from September 2022 was re ported as normal. - Imaging: Mammogram was performed in Ap 2022. Patient was informed and verbally consented to the use of an ambient scribe for clinic note documentation during this visit. [facility] Medical History (Updated 03/18/25 @ 10:59 by JULIO Salmon) Arthritis GERD (gastroesophageal reflux disease) Hyperlipidemia IBS (irritable bowel syndrome) Spinal stenosis Surgical History Hx of colonoscopy (~01/23/21) Family History Sister Breast CA Mother No problems noted. Father No problems noted. Social History Housing: House Alcohol intake: current Alcohol intake frequency: 0-2 drinks per day Alcohol type: wine Patient Tobacco Use Status: Never used Tobacco e-Cigarette/Vaping Use: Never Used service: No Current occupational status: retired Sexual orientation: Straight/Heterosexual Gender identity: Female Cognitive needs: No Hearing needs: No Vision needs: Yes (rx glasses) Female Reproductive History Menstrual Age of Menarche: 11 Questionnaire Thrive Questionnaire Date Thrive assessed: 09/24/24 PARAS-7 AMB Questionnaire PARAS-7 Date PARAS - 7 assessed: 09/24/24 Source: Developed by Drs. Alan Salmeron, Emelina Iglesias, Brandyn Daley and colleagues, with an educational elvia from [employer]. Review of Systems Narrative Review of Systems - Eyes: Reports worsening vision. - HEENT: Denies problems with hearing. - Cardiovascular: Denies chest pain. - Respiratory: Denies coughing or shortness of breath. - Gastrointestinal: Reports IBS is controlled with dicyclomine and prune juice. Reports heartburn is controlled with pantoprazole. - Musculoskeletal: Reports sciatica with pain radiating to the ankle. Reports arthritic pain and clicking in both thumbs. Denies history of fractures. Physical exam (Primary Care) Vital Signs: Last Vital Signs Temp 97.4 F 03/18/25 09:03 Pulse 76 03/18/25 09:03 Resp 16 03/18/25 09:03 BP 152/76 H 03/18/25 09:03 Pulse Ox 96 03/18/25 09:03 Oxygen Delivery Method Room Air 03/18/25 09:03 BMI result Body Mass Index 21.3 GENERAL Well developed, Well nourished, in no apparent distress HEENT Head-Normocephalic Eyes- PERRLA, EOMI, Conjuctiva clear, lids WNL Ears- Canals clear, TMs WNL Mouth/Throat-No lesions, no erythema, no exudate Neck- Supple, No lymphadenopathy, thyroid WNL RESPIRATORY Normal I:E, Clear to auscultation CARDIOVASCULAR Regular, rate and rhythm, No murmurs or rubs GASTROINTESTINAL Soft, nontender, normal bowel sounds, no masses MUSCULOSKELETAL Back- Decreased ROM, Tender in Lumbar with muscle tightness, Tender with motion, Straight leg raise Positive, DTR 2+ symmetrical, Gait normal Joints- Swelling in joints of hands NEUROLOGICAL Gait normal PSYCHIATRIC Oriented to person, place and time Mood and affect WNL Appearance WNL Speech WNL Thought processes WNL Tobacco/Smoking Status: Tobacco use Status Tobacco use date assessed 09/24/24 03/18/25 09:05 Patient Tobacco Use Status Never used Tobacco 03/18/25 09:05 e-Cigarette/Vaping Use Never Used 03/18/25 09:05 Thrive Assessment: Date of Thrive Assessment Date Thrive assessed 09/24/24 03/18/25 09:05 Narrative Physical Exam - Vitals: Blood pressure on recheck is 132/70 mmHg. - HEENT: Oropharynx is clear. - Respiratory: Lungs are clear to auscultation bilaterally. - Cardiovascular: Regular rate and rhythm. - Extremities: Mild swelling noted over bilateral thumbs. Coding Level of Care Code Established Pt Est Pt Level 4 (51584) Established Pt Add On Problem Visit Only Patient Type Established Diagnoses Hyperlipidemia E78.5 GERD (gastroesophageal reflux disease) K21.9 IBS (irritable bowel syndrome) K58.9 Arthritis M19.90 Spinal stenosis M48.00 Time Spent (min) 35 Comment Time spent on chart review, H&P. Patient education and orders Assessment & Plan Assessment & Plan (1) Hyperlipidemia: Code(s): E78.5 - Hyperlipidemia, unspecified Category: Medical Plan: Controlled. Patient will continue current medications. Will monitor. Patient will follow up in 3 months (2) GERD (gastroesophageal reflux disease): Code(s): K21.9 - Gastro-esophageal reflux disease without esophagitis Category: Medical Plan: Controlled. Patient will continue current medications. Will monitor. Patient will follow up in 3 months (3) IBS (irritable bowel syndrome): Code(s): K58.9 - Irritable bowel syndrome, unspecified Category: Medical Plan: Doing OK with Dicyclomine. Patient to follow up in 3 months or sooner if symptoms persist or worsen. (4) Arthritis: Code(s): M19.90 - Unspecified osteoarthritis, unspecified site Category: Medical Plan: Patient will continue Tylenol. Will try Dicofenac gel. Patient to follow up in 3 months or sooner if symptoms persist or worsen. (5) Spinal stenosis: Code(s): M48.00 - Spinal stenosis, site unspecified Category: Medical Plan: will watch for now Plan Plan Patient was informed and verbally consented to the use of an ambient scribe for clinic note documentation during this visit. 1. Irritable Bowel Syndrome Symptoms are well-controlled with dicyclomine twice daily and prune juice. A refill for dicyclomine will be sent to the pharmacy. 2. Gastroesophageal Reflux Disease Symptoms are well-controlled with pantoprazole. A refill for pantoprazole will be sent to the pharmacy. 3. Hyperlipidemia The patient is on an unspecified cholesterol medication. A refill for this medication will be sent to the pharmacy. 4. Arthritis Of Thumb And Trigger Finger The patient uses Tylenol Arthritis as needed for thumb pain. It was recommended she try topical Voltaren to help with inflammation. She was educated on trigger finger and the option for an orthopedic consultation for a steroid injection if symptoms become bothersome. 5. Sciatica The patient will continue to manage symptoms with topical Biofreeze. 6. Elevated Blood Pressure Reading Without Diagnosis Of Hypertension The patient's blood pressure was elevated on arrival but improved to 132/70 mmHg on recheck. She reports it is usually fine. Will continue to monitor. Discussion Notes I addressed the patient's complaints of sciatica and thumb pain. For her thumb arthritis and associated clicking, which is consistent with trigger finger, I recommended trying topical Voltaren gel to manage the inflammation, noting the benefit of avoiding systemic side effects. I also discussed that if her trigger finger becomes more bothersome, a referral to an orthopedist for a steroid injection is an option. We reviewed her chronic medications for IBS, GERD, and high cholesterol, and I confirmed that I will send refills for all of them to her pharmacy. Her blood pressure was 132/70 mmHg on recheck, and we will continue to monitor it. I advised a follow-up appointment in three months, at which time she will be due for routine blood work. I also supported her plan to see an eye doctor for her worsening vision. Patient Instructions - I will send refills for your dicyclomine, cholesterol medication, and medication for acid reflux to the [facility] on [address]. - For your thumb pain, you can try using [id number] Voltaren gel, which is a topical anti-inflammatory that you rub onto the joint. - Schedule an appointment with an eye doctor to have your vision checked. - Please schedule a follow-up appointment with our office in three months. - We will do your next routine blood work at your three-month follow-up visit. - If anything comes up or your symptoms worsen before then, please call the office. Medications: Refilled dicyclomine 20 mg PO BID 180 tabs 2RF for IBS pantoprazole 40 mg PO DAILY 90 tabs 2RF for acid ezetimibe-simvastatin 10-40 mg (Vytorin) 1 tab PO BEDTIME 90 tabs 2RF for cholesterol
[2025-03-18 09:03] VITALS: BP 152/76; PULSE 76; RESP 16; TEMP 36.3; O2SAT 96; BMI 21.3
--- OUTSIDE RECORDS SUMMARY | 2025-03-18 09:35 | XMS_ITS | Patient Health Record ---
Author Organization [facility] Address [address] [place] [address] Care Team Providers Care Calcine Furnace Loader Name Role Phone Yun (RETIRED) Abdirahman PATEL Primary Care Provide r Unavailable Alan Vega Unavailable [phone] Allergies No Known Allergies Reason For Referral [...] Problem Screening for malignant neoplasm of colon (103989651) Encounter for screening for malignant neoplasm of colon (Z12.11) Active confirmed Problem History of adenomatous polyp of colon (978972232) History of adenomatous polyp of colon (Z86.010) Active confirmed Problem Benign neoplasm of stomach (31084348) Gastric polyps (K31.7) Active confirmed Problem Esophageal reflux finding (638601505) Gastroesophageal reflux (K21.9) Active confirmed Problem Irritable bowel syndrome characterized by constipation (892571772) Irritable bowel syndrome with constipation (K58.1) Active confirmed Problem Diverticulosis of colon (364250369) Diverticulosis of colon (K57.30) Active confirmed Problem Gastroesophageal reflux disease (897439990) Gastroesophageal reflux disease, unspecified whether esophagitis present (K21.9) Active confirmed Plan Of Treatment Pending Test Test Name Order Date Pathology 01/23/2021 Future Test Test Name Order Date UPPER GI ENDOSCOPY 12/05/2020 COLONOSCOPY 12/05/2020 Insurance Providers Payer Name Payer Address Payer Phone Subscriber Number Group Number Insured Name Patient Relationship to Insured Coverage Start Date Coverage End Date [facility] [address] [place] [address] [id number] LAURYN FIERRO Self - patient is the insured Medical (General) History Medical History History ICD Code Tubular adenoma removed in by Dr. Walden; she had a negative colonoscopy in 2004; IBS GERD Hyperlipidemia Denies [place],DM,CVA,Lung disease,renal dise ase Surgical History Surgery Date(Month/Year)
[2025-03-18 10:46] VITALS: BP 132/78
== END 2025-03-18 09:35 | disposition home or self-care (01) ==
LOC: HO.HMCHD 08:55
PROVIDERS: PCP Physician Assistant Medical; Visit Provider Physician Assistant Medical
DX: E78.5 Hyperlipidemia, unspecified (principal); K21.9 Gastro-esophageal reflux disease without esophagitis; K58.9 Irritable bowel syndrome, unspecified; M19.90 Unspecified osteoarthritis, unspecified site; M48.00 Spinal stenosis, site unspecified

== ENCOUNTER → 2025-03-18 08:54 | Outpatient (BNVA) | payer MEDICARE, SELFPAY | PROVIDERS: PCP Physician Assistant Medical; Visit Provider Physician Assistant Medical | DX: K21.9 Gastro-esophageal reflux disease without esophagitis (principal); E78.5 Hyperlipidemia, unspecified; K58.9 Irritable bowel syndrome, unspecified; M19.90 Unspecified osteoarthritis, unspecified site; M48.00 Spinal stenosis, site unspecified; M79.641 Pain in right hand; M79.642 Pain in left hand; Z79.899 Other long term (current) drug therapy | CPT/HCPCS: 99212 ==